=== PATIENT | female | born 1950 | race Caucasian/White ===

== ENCOUNTER → 2019-09-28 15:16 | Outpatient (CLI) | payer MEDICARE, OTHER, SELFPAY ==
--- NOTE | ~2019-09-28 | MR_ITS ---
EXAMINATION: MR knee RT wo con DATE: 09/28/2019 15:52 INDICATION: Medial meniscal tear presenting with generalized right knee pain and swelling. TECHNIQUE: Magnetic resonance imaging (MRI) of the right knee was performed without intravenous contr ast. Sequences included coronal PD-weighted FSE, coronal PD-weighted FS FSE, sagittal T2-weighted FS E, sagittal PD-weighted FS FSE and axial PD weighted fat saturated FSE. COMPARISON: None. FINDINGS: Medial compartment: Complex tear of the medial meniscus with fluid signal intensity tear planes including a longitudinal horizontal tear plane extending from the anterior body of the posterior horn and with secondary more irregular tearing at the meniscal body. Full/near full-thickness cartilage loss with underlying subar ticular edema along the medial third of the medial tibial plateau. Additional partial thickness chond ral ulceration with deep fissuring throughout the weightbearing medial femoral condyle with cortical irregularity and mild subarticular edema and cystic change posteriorly with a few tiny foci of subart icular edema more anteriorly. Lateral compartment: There is a longitudinal horizontal tear plane extending to the superior articular surface of the late ral meniscal body and posterior horn. Mild chondral fissuring along the posterior medial aspect of th e lateral tibial plateau. Scattered mild chondral surface regularity along the central weightbearing lateral femoral condyle. Patellofemoral compartment: Deep chondral ulceration with mild irregularity to the underlying cortex and minimal subarticular kendra ma at the patellar apical ridge and medial patellar facet. Shallow chondral fissuring along the later al patellar facet. Partial-thickness chondral ulceration with additional small central subchondral os teophytes at the inferior aspect of the medial trochlea. Ligaments and tendons: Anterior and posterior cruciate ligaments are normal. Minimal thickening and increased signal of the proximal medial collateral ligament without surrounding edema to suggest acute injury likely represen ting scarring related to chronic sprain. The fibular collateral ligament is normal. The extensor mech anism is normal. The visualized medial and lateral hamstring tendons as well as the iliotibial band a re normal. Fluid: Small right knee joint effusion with mild synovitis at the suprapatellar pouch. No loose osteochondra l bodies identified. Small Rivas's cyst. Osseous/other: Normal bone marrow signal aside from the previous noted likely degenerative mild subarticular edema. No fracture or pathologic marrow replacing process. IMPRESSION: 1. Medial and lateral meniscal tears. 2. Tricompartmental osteoarthritis, moderate severity with extensive high-grade chondral malacia in t he medial compartment and mild with high-grade chondral malacia in the patellofemoral compartment and with moderate grade chondromalacia in the lateral compartment. 3. Likely reactive small right knee joint effusion and small Rivas's cyst. Reviewed, dictated and finalized at location A. IMPRESSION: 1. Medial and lateral meniscal tears. 2. Tricompartmental osteoarthritis, moderate severity with extensive high-grade chondral malacia in the medial compartment and mild with high-grade chondral m alacia in the patellofemoral compartment and with moderate grade chondromalacia in the lateral compartment. 3. Likely reactive small right knee joint effusion and small Rivas's cyst.
== END ==
PROVIDERS: Visit Provider Orthopaedic Surgery
DX: S83.249A Other tear of medial meniscus, current injury, unspecified knee, initial encounter (principal); S83.281A Other tear of lateral meniscus, current injury, right knee, initial encounter; M17.11 Unilateral primary osteoarthritis, right knee; M94.261 Chondromalacia, right knee; M25.461 Effusion, right knee; M71.21 Synovial cyst of popliteal space [Baker], right knee
CPT/HCPCS: 73721

== ENCOUNTER 2019-12-20 00:12 | Outpatient (CLI) | payer MEDICARE, SELFPAY ==
[2019-12-20 18:28] LABS: SARS-CoV-2 RNA PCR Negative
== END 2019-12-20 00:13 | disposition home or self-care (01) ==
LOC: ANHCOVIDDT 00:12
PROVIDERS: PCP Internal Medicine; Visit Provider Orthopaedic Surgery
DX: Z01.812 Encounter for preprocedural laboratory examination (principal); Z20.828 Contact with and (suspected) exposure to other viral communicable diseases
CPT/HCPCS: 87635; C9803; U0003

== ENCOUNTER 2019-12-20 08:18 | Outpatient (CLI) | payer MEDICARE, OTHER, SELFPAY ==
--- NOTE | 2019-12-20 08:22 | ECG_ITS ---
Measurements Intervals [place] Rate: 45 P: 43 [place]: 192 QRS: 34 QRSD: 98 T: 43 QT: 475 QTc: 412 Interpretive Statements SINUS BRADYCARDIA INCOMPLETE RIGHT BUNDLE BRANCH BLOCK ABNORMAL ECG Electronically Signed On 12-20-2019 8:55:27 CDT by Сергей Bruce D.O.
== END 2019-12-20 08:19 | disposition home or self-care (01) ==
LOC: ANHSURGERY 08:22
PROVIDERS: PCP Internal Medicine; Visit Provider Orthopaedic Surgery
DX: I45.10 Unspecified right bundle-branch block (principal)
CPT/HCPCS: 87635; 93005; C9803; U0003

== ENCOUNTER 2020-01-17 00:08 | Outpatient (CLI) | payer MEDICARE, OTHER, SELFPAY ==
[2020-01-17 18:38] LABS: SARS-CoV-2 RNA PCR Negative
== END 2020-01-17 00:09 | disposition home or self-care (01) ==
LOC: ANHCOVIDDT 00:09
PROVIDERS: PCP Internal Medicine; Visit Provider Orthopaedic Surgery
DX: Z01.812 Encounter for preprocedural laboratory examination (principal); Z20.828 Contact with and (suspected) exposure to other viral communicable diseases
CPT/HCPCS: 87635; C9803; U0003

== ENCOUNTER 2020-01-19 00:28 | Day surgery (SDC) | payer MEDICARE, OTHER, SELFPAY ==
[2019-12-15 09:40] VITALS: BMI 24.2
--- NOTE | 2020-01-10 15:00 | PC.NURSE ---
STATES NO CHANGE IN HEALTH HX SINCE LAST INTERVIEW ON 12/15/19
--- NOTE | 2020-01-11 12:39 | PM.IMHP ---
H&P: HPI History of Present Illness Chief complaint: Right Medial and Lateral Meniscus Tear Narrative: Knee Pain Right knee pain. Pt had MRI done 09/28/19. Involved knee: right Onset: gradual Location of pain: medial, lateral, anterior and inferior Character: stabbing and throbbing Timing of pain: intermittent Exacerbated by: weight bearing, stairs, rotational activities and prolonged activity Relieved by: elevation, ice and rest Associated symptoms: Reports swelling and stiffness History of occupational/recreational activity with repetitive motion: No History of prior knee injury: No Review of Systems Review of Systems: All systems reviewed & are unremarkable except as noted in HPI and below Constitutional: Constitutional: Denies headache(s) and Denies weakness Eyes: Eyes: Denies blurry vision, Denies change in vision and Denies loss of vision ENT: Denies dizziness, Denies dry mouth, Denies headache(s) and Denies nasal congestion Cardiovascular: Cardiovascular: Denies chest pain, Denies syncope, Denies leg edema and Denies dyspnea on exertion Respiratory: Respiratory: Denies cough and Denies dyspnea on exertion Gastrointestinal: Gastrointestinal: Denies abdominal pain, Denies constipation and Denies diarrhea Genitourinary: Genitourinary: Denies urinary frequency Musculoskeletal: Musculoskeletal: Reports as per HPI and Denies numbness Integumentary/Breasts: Skin/Breast: Reports system reviewed and no additional complaints, except as docu Neurologic: Denies dizziness, Denies syncope, Denies headache(s), Denies loss of vision, Denies numbness and Denies weakness Psychiatric: Psychiatric: Reports no additional psychiatric complaints Endocrine: Endocrine: Reports no additional endocrine complaints Hematologic/Lymphatic: Hematologic/Lymphatic: Reports no additional hematologic/lymphatic complaints [facility] Past Medical History Medical History (Updated 11/27/19 @ 13:08 by Sugey Rueda) Medial meniscus tear Right knee DJD Social History Social History (Updated 11/27/19 @ 13:08 by Sugey Rueda) Smoking packs per day: 0.5 Smoking cigarettes per day: 10.0 Years smoked: 10 Smoking pack-years: 5.00 Smoking status: Former smoker Tobacco type: cigarettes Smoking end date: 04/05/77 Alcohol intake: current Drinks per week: 1 Spiritual care concerns: No Meds Home Medications and Allergies Home Medications Medication Instructions Recorded Confirmed Type acetaminophen 325 mg capsule 325 mg PO PRN PRN cap 09/22/19 01/10/20 History ibuprofen 200 mg capsule 200 mg PO .prn PRN cap 09/22/19 01/10/20 History chlorhexidine gluconate 4 % 1 applic TOPICAL ONCE #237 ml 11/27/19 01/10/20 Rx topical liquid Allergies Allergy/AdvReac Type Severity Reaction Status Date / Time Sulfa (Sulfonamide Allergy Unknown Rash Verified 01/10/20 14:52 Antibiotics) Exam Narrative: Exam Narrative: Exam Const Constitutional General: cooperative Nutritional Appearance: average body habitus Orientation/consciousness: patient oriented x3 Constitutional Limitations: no limitations HENWA Head: normal to inspection Ears: hearing grossly normal bilaterally General nose exam: Normal external nose present Face and sinus: normal facial exam Mouth: moist mucous membranes Teeth and gingiva: dentition normal Eyes General: appearance normal, both eyes and all related structures Pupils: Yes Equal, round and reactive pupils present EOM: EOMs intact bilaterally Neck Neck: Yes normal visual inspection Chest Chest palpation & inspection: normal inspection of the chest Resp Effort & Inspection: normal respiratory effort and able to speak in complete sentences Cardio Jugular venous distension: no JVD Neuro Cranial nerves: Yes Equal, round and reactive pupils present Extrem General: Yes normal gait (antalgic ) and No calf tenderness Right lower extremity: knee Details: tenderness Location: medial joint line
[2020-01-19] VITALS (8 sets, daily range): BP systolic 115–163; BP diastolic 64–88; PULSE 40–59; RESP 9–16; TEMP 35.8–36.1; O2SAT 100; BMI 24.8
[2020-01-19] MEDS: ACETAMINOPHEN 500 MG TABLET 1000 MG PO (07:05)
[2020-01-19] MEDS: CELECOXIB 200 MG CAPSULE PO (07:05)
--- NOTE | 2020-01-19 07:16 | WPDHPUPDATE1 ---
History and Physical Update Update Date/Time: 01/19/20 07:16 History and Physical has been reviewed, including an updated exam of the patient. There are NO changes in the patient's condition. Risks, benefits, and alternatives have been discussed and questions answered. Patient agrees to proceed with procedure.
[2020-01-19] MEDS: LACTATED RINGERS 1,000 ML 30 ML IV CONT ×2 (07:27→10:04)
--- NOTE | 2020-01-19 07:36 | SUR.PREOP ---
0725; DR CARRASCO AT BEDSIDE. SHOWED HIM RT OUTER LOWER LEG SCAB SITE.
--- NOTE | 2020-01-19 07:46 | WPDANESEPPF ---
Anes - Initial Pre Proc Eval Procedure: Operation Date: 01/19/20 08:45 Proposed Procedures p Right Knee Arthroscopy, Proceed As Indicated - Momo Mckeon MD Date/Time: 01/19/20 07:46 Surgeon: Momo Mckeon MD Pre Op Diagnosis: Right Medial and Lateral Meniscus Tear Patient Data Age: 69 Gender: F Height: 5 ft 6 in Weight: 69.8 kg Last Vital Signs Temp 36.1 C L 01/19/20 07:15 Pulse 59 L 01/19/20 07:15 Resp 16 01/19/20 07:15 BP 141/64 H 01/19/20 07:15 Pulse Ox 100 01/19/20 07:15 Allergies Allergy/AdvReac Type Severity Reaction Status Date / Time Sulfa (Sulfonamide Allergy Unknown Rash Verified 01/19/20 06:58 Antibiotics) Home Medications Medication Instructions Recorded Confirmed Type acetaminophen 325 mg capsule 325 mg PO PRN PRN cap 09/22/19 01/19/20 History ibuprofen 200 mg capsule 200 mg PO .prn PRN cap 09/22/19 01/19/20 History chlorhexidine gluconate 4 % 1 applic TOPICAL ONCE #237 ml 11/27/19 01/19/20 Rx topical liquid Patient hx anesthesia problems: none Family hx anesthesia problems: none PMFSH Past Medical History Medical History Medial meniscus tear Right knee DJD Surgical History Surgical History (Updated 01/19/20 @ 07:49 by Matheus Cuevas MD) H/O arthroscopic knee surgery Social History Social History Smoking packs per day: 0.5 Smoking cigarettes per day: 10.0 Years smoked: 10 Smoking pack-years: 5.00 Smoking status: Former smoker Tobacco type: cigarettes Smoking end date: 04/05/77 Alcohol intake: current Drinks per week: 1 Alcohol use details: BEER Living arrangements: alone Spiritual care concerns: No Anes - Eval Final PreProcedure Day of Procedure 01/19/20 07:46 Patient weight: normal Heart: regular rate and rhythm Lungs: clear to auscultation Airway: Mallampati scale class II Neurological: alert and oriented Last oral intake: >/= 8 hours ASA classification: II Emergent: no Anesthetic plan: proceed Anesthesia type and monitoring: general LMA and standard monitoring Informed Consent: The patient's anesthetic plan and its attendant risks and benefits were discussed with the patient/family/POA. Questions were solicited and answers provided to the satisfaction of the patient/family/POA.
[2020-01-19] MEDS: ceFAZolin 2 GM/D5W 50 ML 2 GM/50 ML BAG IVPB (08:51)
--- NOTE | 2020-01-19 10:06 | PM.PROC ---
Procedure Note - Detailed Date of procedure: 01/19/20 Pre-op diagnosis: Right Medial and Lateral Meniscus Tear Post-op diagnosis: other (medial meniscus tear, lateral meniscus tear, chondromalacia, synovitis) Procedure performed: RIGHT KNEE SCOPE WITH PARTIAL MEDIAL MENISCECTOMY, PARTIAL LATERAL MENISCECTOMY AND MAJOR SYNOVECTOMY Description of procedure: PATIENT WAS TAKEN TO THE OR. THE RIGHT LEG WAS PREPPED AND DRAPED STERILE. TROCARS WERE PLACED IN THE USUAL FASHION. CAMERA WAS INTRODUCED. THERE WAS CHONDROMALACIA TO THE PATELLA FEMORAL JOINT. THERE WAS A LOT OF SYNOVITIS IN ALL COMPARTMENTS. THE MEDIAL COMPARTMENT SHOWED GRADE 2 CHONDROMALACIA AND AN AREA OF FULL THICKNESS CARTILAGE DEFECT ON BOTH THE MEDIAL FEMORAL CONDYLE AND THE MEDIAL PLATEAU. A SHAVER WAS USED TO PREFORM A CHONDROPLASTY. THERE WAS A COMPLEX MEDIAL MENISCUS TEAR. THE TEAR WAS RESECTED WITH A BITER AND A SHAVER DOWN TO A SMOOTH BASE. ABOUT 20% OF THE MENISCUS WAS REMOVED. THE ACL WAS INTACT. THE LATERAL MENISCUS WAS TORN AT THE ANTERIOR HORN. THE TEAR WAS RESECTED. THE LAT COMPARTMENT HAD GRADE 2 CHONDROMALACIA AT THE LATERAL FEMORAL CONDYLE. CHONDROPLASTY WAS PREFORMED. A SYNOVECTOMY WAS PREFORMED WELL. THE PATELLO FEMORAL JOINT UNDERWENT CHONDROPLASTY. THERE WAS GRADE 3 CHONDROMALACIA IN MOST OF THE TROCHLEA AND PART OF THE PATELLA. SYNOVECTOMY WAS PREFORMED IN THE SUPERIOR MEDIAL COMPARTMENT. THE WOUNDS WERE APPROXIMATED WITH 4.0 NYLON. STERILE DRESSING WAS APPLIED. PATIENT WAS EXTUBATED. Anesthesia: GLMA Surgeon: Momo Mckeon MD Estimated blood loss (mL): 5 Complications: No immediate complications Condition: stable Disposition: PACU
[2020-01-19] MEDS: fentaNYL CITRATE INJ (*CRX) 100 MCG/2 ML VIAL 25 MCG IV PUSH ×2 (10:30→10:57)
[2020-01-19] MEDS: oxyCODONE HCL (*CRX) 5 MG TAB IR PO (12:02)
== END 2020-01-19 12:32 | disposition home or self-care (01) ==
PROVIDERS: PCP Internal Medicine; Visit Provider Orthopaedic Surgery
PROC: (CPT 29870; principal; 2020-01-19 08:45)
DX: M23.331 Other meniscus derangements, other medial meniscus, right knee (principal); M23.341 Other meniscus derangements, anterior horn of lateral meniscus, right knee; M65.861 Other synovitis and tenosynovitis, right lower leg; M94.261 Chondromalacia, right knee; M17.11 Unilateral primary osteoarthritis, right knee; Z87.891 Personal history of nicotine dependence
CPT/HCPCS: 29880; A9270; J0690; J1100; J2405; J2704; J3010; J7120

== ENCOUNTER → 2021-10-31 12:04 | Outpatient (CLI) | payer MEDICARE, OTHER, SELFPAY ==
--- NOTE | ~2021-10-31 | MR_ITS ---
EXAMINATION: MR foot RT wo con DATE: 10/31/2021 12:54 INDICATION: Right foot pain TECHNIQUE: Magnetic resonance imaging (MRI) of the right fore/mid foot was performed without intraven ous contrast. Sequences included sagittal T1-weighted FSE, sagittal fluid sensitive FSE STIR, coronal PD-weighted FS FSE, coronal T1-weighted FSE, axial PD-weighted FS FSE, and axial PD-weighted FSE. COMPARISON: Right foot radiographs dated 10/28/2021 FINDINGS: Bone alignment is normal. There is marrow edema at the head of the second metatarsal with subtle subc ortical low signal intensity along the distal articular surface consistent with osteonecrosis (Freibe rg's infraction), still without collapse/flattening of the distal articular cortex. Old healed avulsi on fracture at the medial base of the first proximal phalanx. No other fractures identified. Mild dali yarticular osteoarthritis at the first metatarsophalangeal, a few of the joints in the midfoot and a few interphalangeal joints. There is associated mild subarticular cystlike change at the head of the first metatarsal, at the distal articular surface of the navicula and proximal articular surface of t he middle cuneiform. Subarticular edema-like signal change at the base of the fifth proximal phalanx. The Lisfranc ligament complex as well as the collateral ligament complex at the metatarsophalangeal and interphalangeal joints are normal. Visualized portions of the intrinsic musculature as well as th e flexor and extensor tendons of the foot are unremarkable. IMPRESSION: 1. 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 2. Mild polyarticular osteoarthritis in the mid and forefoot. Reviewed, dictated and finalized at location A. IMPRESSION: 1. 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 2. Mild polyarticular osteoarthritis in the mid and forefoot.
== END ==
PROVIDERS: PCP Internal Medicine; Visit Provider Orthopaedic Surgery
DX: M87.874 Other osteonecrosis, right foot (principal); M19.071 Primary osteoarthritis, right ankle and foot
CPT/HCPCS: 73718

== ENCOUNTER 2022-01-23 09:56 | Outpatient (CLI) | payer MEDICARE, OTHER, SELFPAY ==
--- NOTE | 2022-01-23 10:55 | ECG_ITS ---
Measurements Intervals [place] Rate: 43 P: 44 [place]: 186 QRS: 30 QRSD: 98 T: 34 QT: 473 QTc: 404 Interpretive Statements SINUS BRADYCARDIA INCOMPLETE RIGHT BUNDLE BRANCH BLOCK [90+ ms QRS DURATION, TERMINAL R IN V1/V2, 40+ ms S IN I/aVL/V4/V5/V6] COMPARED TO ECG 12/20/2019 08:51:15 NO SIGNIFICANT CHANGES Electronically Signed On 01-23-2022 14:08:35 CDT by Mihai Bucio M.D.
[2022-01-23 11:26] LABS: Basophils Percent Auto 0.5 % (0.2-1.2); Eosinophils Absolute Auto 0.1 K/mm3 (0-0.3); Eosinophils Percent Auto 0.7 % (0-4.4); Hematocrit 42.1 % (37.0-47.0); Hemoglobin 13.9 g/dL (12.0-15.0); Immature Granulocyte Absolute 0.01 K/mm3 (0.00-0.031); Immature Granulocyte Percent A 0.1 % (0-0.5); Lymphocytes Absolute Auto 2.05 K/mm3 (0.9-3.2); Lymphocytes Percent Auto 27.3 % (18.3-44.2); Mean Corpuscular Hemoglobin 29.4 pg (26-34); Mean Platelet Volume 10.7 fl (7.4-10.4); Monocytes Absolute Auto 0.4 K/mm3 (0.1-0.6); Monocytes Percent Auto 5.2 % (2.6-8.5); Neutrophils Percent Auto 66.2 % (45.5-73.1); Platelet Count Result 232 k/mm3 (150-375); Red Blood Count 4.73 M/mm3 (4.2-5.4); Red Cell Distribution Width 12.7 % (11.5-14.5); White Blood Count 7.5 K/mm3 (4.5-10.0)
[2022-01-23 11:30] LABS: INR 1.1; Prothrombin Time 13.5 Seconds (11.1-14.7)
[2022-01-23 11:31] LABS: Albumin Level 4.6 g/dL (3.5-5.1); Anion Gap 10 mmol/L (8-16); Blood Urea Nitrogen 16 mg/dL (7-17); Calcium 9.7 mg/dL (8.4-10.2); Carbon Dioxide 26 mmol/L (22-30); Chloride 104 mmol/L (98-107); Estimated Glomerular Filt Rate 55; Glucose 92 mg/dL (65-110); Partial Thromboplastin Time 30.2 SECONDS (22.3-36.8); Potassium 4.5 mmol/L (3.4-5.0); Sodium 140 mmol/L (137-145)
[2022-01-23 11:33] LABS: Add Urine Microscopic? YES; Appearance Urine Clear (Clear); Bilirubin Urine Negative (Negative); Blood Urine Negative (Negative); Color Urine Straw (Yellow); Glucose Urine UA Negative (Negative); Ketones Urine Negative (Negative); Leukocyte Esterase Ur Negative LEU/UL (Negative); Mucus Urine Rare /lpf; Nitrate Urine Negative (Negative); Protein Urine Negative (Negative); Squamous Epithelial Cell Urine Rare /hpf (Few); Transitional Epi Cells Urine Rare /hpf (None Seen); Urine Cotinine NEGATIVE; Urobilinogen Urine Negative mg/dL (<2.0)
[2022-01-23 12:36] LABS: Specific Grav Ur 1.004 (1.001-1.035)
== END 2022-01-23 09:57 | disposition home or self-care (01) ==
PROVIDERS: PCP Family Medicine; Visit Provider Orthopaedic Surgery
DX: M17.11 Unilateral primary osteoarthritis, right knee (principal); Z01.818 Encounter for other preprocedural examination; I45.10 Unspecified right bundle-branch block
CPT/HCPCS: 80048; 80307; 81001; 82040; 83036; 85025; 85610; 85730; 87081; 93005

== ENCOUNTER 2022-02-11 16:43 | Observation (INO) | payer MEDICARE, OTHER, SELFPAY ==
[2022-01-23 10:08] VITALS: BMI 25.1
--- NOTE | 2022-01-23 10:28 | PC.NURSE ---
Report to the Outpatient Waiting Room, entrance under the green pavilion located off [facility], at time _1000 on date _02/10/22 . Planned Procedure Time: __1200 . Time changes happen often and if your time is changed the preop area will call you the afternoon before. - You and your visitor will be asked to self-screen and do not enter if you have any COVID symptoms. - We encourage only one visitor and NO visitors under age 16 are allowed at this time. Your visitor will receive communication by the phone number that is given day of service. - The patient visitor is requested to social distance or may leave the building when not with patient due to restrictions. - A mask is required within the hospital. Patients may have clear liquids (water, carbonated beverages, clear teas, apple juice) until 3 hours prior to surgery with a maximum of 20 ounces. - No food from midnight until time of surgery - Infants may have breast milk until 4 hours before surgery, formula 6 hours prior to surgery. - Children will be allowed to drink immediately following surgery. If applicable, please bring a bottle or sippy cup to assist with drinking. Juice, water, soda, and popsicles are readily available. For infants on formula, please bring formula the day of surgery. Pacifiers are allowed. Take the following medications with a SIP of water the morning of surgery: __NONE Medications to discontinue per physician ____IBUPROFEN PER DR CARRASCO Date to take last dose Please no make-up, nail croatian, hairspray, perfume, deodorant, or body powder the day of surgery. No jewelry (including any body piercings) or valuables the day of surgery, leave them at home. Please take a shower or bath the night before, or the morning of, surgery with an antibacterial soap. Wear comfortable, loose fitting clothing. Children are encouraged to wear pajamas. - Jewelry must be removed prior to entering the operating room. Rings and piercings that are not removed may be cut off. - The hospital will not accept responsibility for valuables. - Please leave all valuables, including medications, at home the day of surgery. If you are going home after surgery, a licensed escort car driver must drive you home. - NO public transportation without another adult. - We recommend that an adult stay with you for 24 hours following discharge. - We also recommend that you do not drive, make important decision, drink alcoholic beverages, or take any drugs that were not prescribed by your health care provider for at least 24 hours after your discharge time. For Pediatric surgeries, we recommend two adults accompany the child home. Follow any additional instructions given to you from your surgeon. If you or anyone in your household have experienced Covid symptoms in the past week, please notify your surgeon or the nurse liaison at the phone number below for possible testing. VERBAL AND WRITTEN instructions given to ___PATIENT and asked if any additional questions and then verbalized understanding. Patient advised to call surgeon office or pre surgery nurse liaison [phone] if any additional questions.
[2022-01-23 10:46] VITALS: BP 166/88; PULSE 52; RESP 18; TEMP 36.5; O2SAT 100
[2022-02-10] VITALS (18 sets, daily range): BP systolic 97–157; BP diastolic 53–89; PULSE 46–99; RESP 10–18; TEMP 36–36.6; O2SAT 95–100
[2022-02-10] MEDS: LACTATED RINGERS 1,000 ML 30 ML IV CONT ×2 (10:10→15:07)
[2022-02-10] MEDS: ACETAMINOPHEN 500 MG TABLET 1000 MG PO (10:11)
--- NOTE | 2022-02-10 10:36 | SUR.PREOP ---
PT AND FAMILY MADE AWARE OF 1 HOUR DELAY FROM SURGEON BEFORE.
--- NOTE | 2022-02-10 11:03 | WPDHPUPDATE1 ---
History and Physical Update Update Date/Time: 02/10/22 11:03 History and Physical has been reviewed, including an updated exam of the patient. There are NO changes in the patient's condition. Risks, benefits, and alternatives have been discussed and questions answered. Patient agrees to proceed with procedure.
--- NOTE | 2022-02-10 11:26 | P.PNAN_ITS ---
Anes - Initial Pre Proc Eval Procedure: Operation Date: 02/10/22 12:00 Proposed Procedures p Right Total Knee Arthroplasty - Momo Mckeon MD Date/Time: 02/10/22 11:26 Surgeon: Momo Mckeon MD Pre Op Diagnosis: right knee djd Patient Data Age: 71 Gender: F Height: 1.68 m Weight: 69.7 kg Last Vital Signs Temp 36.5 C 02/10/22 10:23 Pulse 49 L 02/10/22 10:23 Resp 16 02/10/22 10:23 BP 147/71 H 02/10/22 10:23 Pulse Ox 99 02/10/22 10:23 O2 Del Method Room Air 02/10/22 10:23 Allergies Allergy/AdvReac Type Severity Reaction Status Date / Time Sulfa (Sulfonamide Allergy Unknown Rash Verified 02/10/22 09:52 Antibiotics) Home Medications Medication Instructions Recorded Confirmed Type ibuprofen 200 mg capsule 200 mg PO .prn PRN Pain 09/22/19 02/10/22 History Patient hx anesthesia problems: none Family hx anesthesia problems: none Results Review: All pre-operative results and documents have been reviewed as part of the pre- operative evaluation. [facility] Past Medical History Medical History Arthritis Family history of heart murmur History of mitral valve prolapse Medial meniscus tear Right knee DJD Toe fracture, right Surgical History Surgical History H/O arthroscopic knee surgery History of bladder suspension procedure Hx of hysterectomy Family History Family History Father Lung cancer Mother Diabetes mellitus Hypertension Acute myocardial infarction Grandparent Diabetes mellitus Social History Social History Smoking packs per day: 0.5 Smoking cigarettes per day: 10.0 Years smoked: 10 Smoking pack-years: 5.00 Smoking status: Former smoker Tobacco type: cigarettes Smoking end date: 04/05/77 Additional smoking assessment comments: DENIES ANY FORM OF TOBACCO USE Alcohol intake: current Drinks per week: 1 Alcohol use details: BEER Substance use: never Living arrangements: alone 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 Informed Consent: The patient's anesthetic plan and its attendant risks and benefits were discussed with the patient/family/POA. Questions were solicited and answers provided to the satisfaction of the patient/family/POA.
--- NOTE | 2022-02-10 12:25 | WPDANESPNB ---
Anes - Peripheral Nerve Block Date/Time: 02/10/22 12:25 I have discussed with the patient/family/POA the placement of a peripheral nerve block for post-operative pain management, including associated risks, benefits, complications, and side effects. Alternative methods of post-operative analgesia were detailed. Questions were solicited and answers provided to the satisfaction of the patient/family/POA. Time-Out: A pre-procedural Time-Out was completed immediately before starting the procedure and confirmed: Patient Identification, Site, Procedure, Patient Position and the Availability of Requisite Equipment. Clinical Indications: Acute post-operative pain management requested by the operative surgeon. Nerve Block Insertion Note Anes-nerve block: femoral right Patient position: supine Skin prep: chlorhexidine Needle: 22 gauge, stimulating, insulated echogenic needle. Needle length: 50 mm Technique: nerve stimulation lost at (mA) (0.3) Injectate: bupivacaine 0.5% with epi 5 mcg/ml (20cc no epi) and dexamethasone (mg) (4) Observations: tolerated well Complications: none Procedure start time:: 1224 Procedure end time:: 1228
[2022-02-10] MEDS: TRANEXAMIC ACID 1,000MG/ISO100 1,000 MG/100 ML BAG 200 MG IVPB (12:30)
[2022-02-10] MEDS: ceFAZolin 2 GM/D5W 50 ML 2 GM/50 ML BAG IVPB ×2 (13:04→22:39)
[2022-02-10] MEDS: GENTAMICIN BONE CEMENT REFOBACIN 1 EACH TOPICAL (14:02)
[2022-02-10] MEDS: TRANEXAMIC ACID 1,000 MG/10 ML AMPUL 1000 MG IV PUSH (14:23)
--- NOTE | 2022-02-10 15:21 | W.PM.PROC2 ---
Procedure Note - Detailed Date of Procedure 02/10/22 Pre-op Diagnosis right knee djd Post-op Diagnosis Same Procedure Performed R TKA Surgeon Momo Mckeon MD Anesthesia General Description of Procedure THE RIGHT KNEE WAS PREPPED AND DRAPED IN THE STERILE FASHION. THERE WAS A 10 DEGREE FLEXION CONTRACTURE. A MIDLINE SKIN INCISION WAS MADE. A MEDIAL PARAPATELLAR ARTHROTOMY WAS MADE. THE PATELLA WAS EVERTED. THERE WAS TRICOMPARTMENT DJD. THERE WAS MINIMAL PATELLA DJD. AN INTRAMEDULLARY STEPHANIE WAS PLACED IN THE FEMUR. A DISTAL FEMORAL CUT WAS MADE IN 5 DEGREES OF VALGUS REMOVING APPROXIMATELY 9 MM OF BONE FROM THE DISTAL FEMUR. THE FEMUR WAS SIZED TO 62.5. A 62.5 FEMORAL CUTTING BLOCK WAS PLACED IN 3 DEGREES OF EXTERNAL ROTATION AND IN ALIGNMENT WITH HERBERT'S LINE AND THE TRANSEPICONDYLAR AXIS. ANTERIOR POSTERIOR AND CHAMFER CUTS WERE MADE. THE CUTS WERE EXCELLENT. NEXT AN INTRAMEDULLARY CUTTING GUIDE WAS PLACED IN THE TIBIA. A TRANS TIBIAL CUT WAS MADE ALONG THE LONG AXIS OF THE TIBIA. APPROXIMATELY 10 MM OF BONE WAS REMOVED FROM THE HIGH SIDE OF THE TIBIA. THE TIBIA WAS THEN PLANED TO A SMOOTH SURFACE. POSTERIOR FEMORAL OSTEOPHYTES WERE REMOVED FROM THE FEMORAL CONDYLES. A 71 TIBIAL TRIAL WAS PLACED IN ALIGNMENT WITH THE 1/3 MEDIAL ASPECT OF THE TIBIAL TUBERCLE. THEN A 62.5 FEMORAL TRIAL COMPONENT WAS PLACED. BOTH HAD EXCELLENT FITS. EVENTUALLY A 10 MM CR POLYETHYLENE TRIAL COMPONENT WAS PLACED. THE KNEE WAS TAKEN THROUGH A RANGE OF MOTION. THE KNEE CAME OUT TO FULL EXTENSION. THERE WAS NO ABNORMAL TILT TO THE PATELLA. THERE WAS GOOD A/P AND VARUS/VALGUS STABILITY. THERE WAS NO EXCESSIVE ROLL BACK WITH FLEXION. THE TRIAL COMPONENTS WERE REMOVED. THEN A 62.5 FEMORAL COMPONENT AND 71 TIBIAL COMPONENT WITH A 10 CR POLYETHYLENE COMPONENT WERE CEMENTED INTO PLACE. ONCE THE CEMENT WAS HARD THE KNEE WAS TAKEN THROUGH A ROM AGAIN AND FOUND TO BE STABLE WITH NO PATELLA TILT NO EXCESSIVE ROLL BACK WITH FLEXION AND GOOD STABILITY WITH COMPLETE AND FULL EXTENSION. THE KNEE WAS IRRIGATED WITH STERILE BETADINE AND WATER FOR ABOUT 3 MINUTES. THE BLEEDERS WERE CAUTERIZED. THE ARTHROTOMY WAS REPAIRED WITH NUMBER 1 VICRYL. THE SUB CUTANEOUS LAYER WITH 2-0 VICRYL AND THE SKIN WITH KRISTY. THE WOUND WAS WASHED AND A STERILE DRESSING WAS APPLIED. PATIENT WAS EXTUBATED. Estimated Blood Loss -150.0 Pathology None sent Complications No immediate complications Condition Stable Disposition PACU
[2022-02-10] MEDS: fentaNYL CITRATE INJ (*CRX) 100 MCG/2 ML VIAL 25 MCG IV PUSH ×8 (15:30→17:10)
--- NOTE | 2022-02-10 19:55 | ADMGEN ---
This patient, Delfina Cowart, was admitted to Medical Room 253-01. Patient/family oriented to hospital policies and general routines including ID bracelet, bed and alarms, visiting hours, pain management, procedures, bathroom and other care routines, personal items, smoking policy, room service/diet, and visiting hours. Information on how to activate the Rapid Response Team has been discussed. Patient/Family are encouraged to report perceived risks to care and to ask questions if they do not understand what they are told or what they should do.
[2022-02-10] MEDS: FAMOTIDINE 20 MG TABLET PO (22:27)
[2022-02-10] MEDS: SENNA/DOCUSATE SODIUM TABLET 2 TAB PO (22:27)
[2022-02-10] MEDS: KETOROLAC 15 MG/ML VIAL (*BKC) IV PUSH (22:28)
[2022-02-10] MEDS: ASPIRIN 325 MG ENTERIC TABLET PO (22:28)
[2022-02-11] VITALS (7 sets, daily range): BP systolic 110–143; BP diastolic 50–65; PULSE 45–68; RESP 16–18; TEMP 36.2–36.8; O2SAT 97–100
--- NOTE | ~2022-02-11 | XR_ITS ---
EXAM: XR knee RT 2V DATE: 02/10/2022 15:22 HISTORY: RT TOTAL KNEE . COMPARISON: 02/05/2022. FINDINGS: Interval right knee total arthroplasty placement, in good position. Midline skin lalito. Gas and fluid within the joint space and soft tissues. No unexpected radiopaque foreign body. IMPRESSION: Expected postsurgical changes, with no radiographic evidence of procedure or hardware rel ated complication. Reviewed, dictated and finalized at location K. 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
[2022-02-11] MEDS: KETOROLAC 15 MG/ML VIAL (*BKC) IV PUSH ×4 (03:52→21:06)
[2022-02-11] MEDS: ceFAZolin 2 GM/D5W 50 ML 2 GM/50 ML BAG IVPB ×2 (04:59→13:09)
[2022-02-11 06:02] LABS: Anion Gap 13 mmol/L (8-16); Blood Urea Nitrogen 14 mg/dL (7-17); Calcium 8.4 mg/dL (8.4-10.2); Carbon Dioxide 21 mmol/L (22-30); Chloride 105 mmol/L (98-107); Estimated CRCL calculation 52 ml/min; Estimated Glomerular Filt Rate > 60; Glucose 146 mg/dL (65-110); Hemoglobin 11.6 g/dL (12.0-15.0); Immature Granulocyte Absolute 0.03 K/mm3 (0.00-0.031); Immature Granulocyte Percent A 0.4 % (0-0.5); Lymphocytes Absolute Auto 1.14 K/mm3 (0.9-3.2); Lymphocytes Percent Auto 14.7 % (18.3-44.2); Mean Corpuscular HGB Conc 32.2 g/dl (32-36); Mean Corpuscular Hemoglobin 29.1 pg (26-34); Mean Corpuscular Volume 90.2 fl (80-100); Mean Platelet Volume 11.5 fl (7.4-10.4); Monocytes Absolute Auto 0.5 K/mm3 (0.1-0.6); Monocytes Percent Auto 5.8 % (2.6-8.5); Neutrophils Absolute Auto 6.1 K/mm3 (1.3-6.7); Neutrophils Percent Auto 79.1 % (45.5-73.1); Platelet Count Result 182 k/mm3 (150-375); Potassium 4.2 mmol/L (3.4-5.0); Red Blood Count 3.99 M/mm3 (4.2-5.4); Red Cell Distribution Width 12.6 % (11.5-14.5); Sodium 139 mmol/L (137-145); White Blood Count 7.8 K/mm3 (4.5-10.0)
[2022-02-11] MEDS: FAMOTIDINE 20 MG TABLET PO ×2 (08:44→21:06)
[2022-02-11] MEDS: ASPIRIN 325 MG ENTERIC TABLET PO ×2 (08:44→21:06)
[2022-02-11] MEDS: oxyCODONE/ACETAMINOPHEN (*CRX) 5-325 MG TABLET 1 TABLET PO (08:57)
--- NOTE | 2022-02-11 12:53 | P.PNAN_ITS ---
Anes - Prog Note Post-Op Date/Time: 02/11/22 12:53 Cardiovascular status: normal Respiratory status: normal Airway patency: baseline Mental status: baseline Post-Op hydration status: normal Vital Signs: Last Vital Signs Temp 36.7 C 02/11/22 11:15 Pulse 51 L 02/11/22 11:15 Resp 16 02/11/22 11:15 BP 113/53 L 02/11/22 11:15 Pulse Ox 97 02/11/22 11:15 O2 Del Method Room Air 02/11/22 08:56 O2 Flow Rate 2 02/10/22 18:29 Pain Score (VAS): 2 I/O: Intake & Output 02/10/22 02/11/22 02/11/22 23:59 07:59 15:59 Intake Total 750 290 240 Output Total 200 500 Balance 550 -210 240 Laboratory Tests 02/11/22 05:20 02/11/22 05:20 02/11/22 02/11/22 05:20 05:20 WBC 7.8 RBC 3.99 L Hgb 11.6 L Hct 36.0 L MCV 90.2 MCH 29.1 MCHC 32.2 RDW 12.6 Plt Count 182 MPV 11.5 H Immature Gran % (Auto) 0.4 Neut % (Auto) 79.1 H Lymph % (Auto) 14.7 L Harris % (Auto) 5.8 Eos % (Auto) 0.0 Baso % (Auto) 0.0 L Lymph # (Auto) 1.14 Harris # (Auto) 0.5 Eos # (Auto) 0.0 Baso # (Auto) 0.0 Abs Immat Gran (auto) 0.03 Absolute Neuts (auto) 6.1 Absolute Nucleated RBC 0.0 Nucleated RBC % 0.0 Sodium 139 Potassium 4.2 Chloride 105 Carbon Dioxide 21 L Anion Gap 13 BUN 14 Creatinine 0.80 Estim Creat Clear Calc 52 Estimated GFR > 60 Glucose 146 H Calcium 8.4 Post-procedural complaints: none Patient Feedback: Patient satisfied with anesthetic care.
--- NOTE | 2022-02-11 16:18 | PM.PNORT ---
Progress Note: A&P Assessment and Plan (1) Right knee DJD: Code(s): M17.11 - Unilateral primary osteoarthritis, right knee Status: Acute Assessment and Plan: POD 1 DOING WELL BUT STILL REQUIRING PT FOR AMBULATION. HER BLOCK IS STILL PRESENT. SHE WILL CONTINUE HER PT AND POSSIBLE DC IN AM Subjective Subjective Date/Time Seen: 02/11/22 16:18 POD 1 DOING WELL. NO CALF PAIN. BLOCK IS STILL PRESENT. SHE IS STILL REQUIRING PT. Exam Extrem: Other: VSS AFEBRILE DRESSING DRY NV INTACT NEG HOMANS SIGN CALF SOFT NON TENDER. WEAK FEMORAL NERVE MOTOR DISTRIBUTION Objective Data Vital Signs Vital Signs: Vital Signs - 24 hr 02/10/22 16:25 02/10/22 16:40 02/10/22 16:58 Temperature Pulse Rate 52 L 65 53 L Respiratory Rate 12 14 12 Blood Pressure 126/65 137/69 149/69 H Pulse Oximetry 99 100 100 Oxygen Delivery Nasal Cannula Nasal Cannula Nasal Cannula Oxygen Flow Rate 2 2 2 02/10/22 17:15 02/10/22 17:29 02/10/22 18:02 Temperature Pulse Rate 50 L 58 L 46 L Respiratory Rate 12 12 12 Blood Pressure 150/66 H 134/75 140/66 Pulse Oximetry 100 100 100 Oxygen Delivery Nasal Cannula Nasal Cannula Nasal Cannula Oxygen Flow Rate 2 2 2 02/10/22 18:29 02/10/22 18:51 02/10/22 19:23 Temperature Pulse Rate 58 L 60 54 L Respiratory Rate 16 16 18 Blood Pressure 142/73 H 152/63 H 141/69 H Pulse Oximetry 100 100 100 Oxygen Delivery Nasal Cannula Room Air Room Air Oxygen Flow Rate 2 02/10/22 19:55 02/10/22 20:08 02/10/22 21:25 Temperature 36.0 C L 36.6 C 36.1 C L Pulse Rate 63 54 L 99 Respiratory Rate 18 18 18 Blood Pressure 143/89 H 131/62 112/53 L Pulse Oximetry 98 98 97 Oxygen Delivery Oxygen Flow Rate 02/10/22 20:00 02/11/22 03:05 02/11/22 08:06 Temperature 36.6 C Pulse Rate 56 L Respiratory Rate 18 Blood Pressure 110/50 L Pulse Oximetry 98 97 Oxygen Delivery Room Air Room Air Oxygen Flow Rate 02/11/22 08:56 02/11/22 08:00 02/11/22 11:15 Temperature 36.7 C Pulse Rate 51 L Respiratory Rate 16 Blood Pressure 113/53 L Pulse Oximetry 97 Oxygen Delivery Room Air Room Air Oxygen Flow Rate 02/11/22 13:25 Temperature 36.2 C L Pulse Rate 68 Respiratory Rate 16 Blood Pressure 131/58 L Pulse Oximetry 100 Oxygen Delivery Oxygen Flow Rate Intake/Output Intake/Output: Intake & Output 02/08/22 02/09/22 02/10/22 02/11/22 23:59 23:59 23:59 23:59 Intake Total 900 650 Output Total 200 500 Balance 700 150 Meds/Results Medications: Active Medications Generic Name Dose Route Start Last Admin Trade Name Freq PRN Reason Stop Dose Admin Acetaminophen 1,000 mg 02/10/22 19:40 Acetaminophen 500 Mg Tablet PO Q6H PRN Pain Rated 1-3 Aspirin 325 mg 02/10/22 21:00 02/11/22 08:44 Aspirin 325 Mg Enteric Tablet PO 325 mg Q12HR KAYLEE Administration Diazepam 5 mg 02/10/22 19:40 Diazepam (*Crx) 5 Mg Tablet PO Q8H PRN Spasms Diphenhydramine HCl 25 mg 02/10/22 19:40 Diphenhydramine Hcl Inj 50 Mg/Ml Vial IV PUSH Q6H PRN Itching Famotidine 20 mg 02/10/22 21:00 02/11/22 08:44 Famotidine 20 Mg Tablet PO 20 mg Q12HR KAYLEE Administration Ketorolac Tromethamine 15 mg 02/10/22 21:00 02/11/22 15:57 Ketorolac 15 Mg/Ml Vial (*Bkc) IV PUSH 02/11/22 21:01 15 mg Q6H KAYLEE Administration Naloxone HCl 0.1 mg 02/10/22 19:40 Naloxone Hcl 0.4 Mg/Ml Vial IV PUSH Q2M PRN Opiate Reversal Ondansetron HCl 4 mg 02/10/22 19:40 Ondansetron Inj 4 Mg/2 Ml Vial IV PUSH Q4H PRN Nausea And Vomiting Oxycodone/Acetaminophen 1 tablet 02/10/22 19:40 02/11/22 08:57 Oxycodone/Acetaminophen (*Crx) 5-325 Mg Tablet PO 1 tablet Q4H PRN Administration Pain Rated 4-6 Oxycodone/Acetaminophen 2 tablet 02/10/22 19:40 Oxycodone/Acetaminophen (*Crx) 5-325 Mg Tablet PO Q6H PRN Pain Rated 7-10 Polyethylene Glycol 17 gm 02/11/22 09:00
[2022-02-12 00:04] VITALS: BP 147/66; PULSE 50; RESP 20; TEMP 36.6; O2SAT 100
[2022-02-12 04:14] VITALS: BP 142/56; PULSE 48; RESP 20; TEMP 36.6; O2SAT 100
[2022-02-12] MEDS: ASPIRIN 325 MG ENTERIC TABLET PO (08:50)
[2022-02-12] MEDS: FAMOTIDINE 20 MG TABLET PO (08:51)
--- NOTE | 2022-02-12 09:28 | PM.PNORT ---
Progress Note: A&P Assessment and Plan (1) S/P total knee arthroplasty: Code(s): Z96.659 - Presence of unspecified artificial knee joint Status: Acute Assessment and Plan: POD #2 : Right TKA Continue PT/OT. WBAT. Walker. HIGH FALL RISK. Continue pain control. Ice Knee. Protect skin. DVT prophylaxis with Aspirin. SCDs. Incentive Spirometry Use reviewed. Monitor Dressing. Change prior to discharge. Bowel Regimen. Dispo: Home with Home Health pending progress with PT/OT Subjective Subjective Date/Time Seen: 02/12/22 09:28 Post Op day: 2 Principal diagnosis: Right Knee DJD Interval history: POD #2: Right TKA Patient doing well. Pain well controlled. Hopeful for discharge home. Review of Systems Review of Systems: All systems reviewed & are unremarkable except as noted in HPI and below Constitutional: Constitutional: Denies fever(s) and Denies headache(s) ENT: Denies headache(s) Cardiovascular: Cardiovascular: Denies chest pain, Denies diaphoresis, Denies palpitations and Denies dyspnea Respiratory: Respiratory: Denies dyspnea Gastrointestinal: Gastrointestinal: Denies abdominal pain, Denies constipation, Denies nausea and Denies vomiting Genitourinary: Genitourinary: Reports nocturia and Denies dysuria Musculoskeletal: Musculoskeletal: Reports arthralgias (Right Knee ) and Reports joint swelling (Right Knee ) Neurologic: Denies headache(s) Endocrine: Endocrine: Denies palpitations Exam Const: General: comfortable and no acute distress Resp: Effort & Inspection: normal respiratory effort Cardio: Rate: regular rate Rhythm: regular rhythm GI: GI Palp: Yes Soft to palpation, No Tenderness to palpation present (GI) and No Guarding due to palpation present (GI) Skin: General skin exam: wounds noted Wounds: wounds noted Other: Incision c/d/i. No surrounding redness/warmth. No hematoma. Mild ecchymosis. No wound dehiscence Neuro: Cognition (Neuro): normal cognition Other: NV intact aside from block. Moves toes. Sensation intact to light touch. +ankle dorsiflexion/plantarflexion. Extrem: Right lower extremity: normal to inspection, knee Details: tenderness (diffuse, mild ) Location: of the patella, swelling (diffuse, consistent with surgical intervention ), abnormal ROM Details: pain with active ROM during, pain with passive ROM during and with range as follows (limited due to recent surgical intervention ); able to extend lower leg actively and ecchymosis (mild ), lower leg (Negative John's Sign ) Details: normal to inspection; no erythema and no tenderness, ankle (+ankle dorsiflexion/plantarflexion ) Details: normal to inspection, no edema and normal ROM; no tenderness, no swelling and no ecchymosis and foot Details: normal capillary refill, normal to inspection, vascular exam Details: dorsalis pedis pulse present and motor-sensory exam Details: light-touch normal; no tenderness Left lower extremity: normal to inspection Psych: Mental Status: mental status grossly normal Objective Data Vital Signs Vital Signs: Vital Signs - 24 hr 02/11/22 11:15 02/11/22 13:25 02/11/22 17:25 Temperature 36.7 C 36.2 C L 36.3 C L Pulse Rate 51 L 68 45 L Respiratory Rate 16 16 16 Blood Pressure 113/53 L 131/58 L 134/65 Pulse Oximetry 97 100 100 Oxygen Delivery 02/11/22 21:15 02/11/22 20:00 02/12/22 00:04 Temperature 36.8 C 36.6 C Pulse Rate 47 L 50 L Respiratory Rate 16 20 Blood Pressure 143/63 H 147/66 H Pulse Oximetry 100 100 Oxygen Delivery Room Air 02/12/22 04:14 02/11/22 23:25 02/12/22 09:06 Temperature 36.6 C Pulse Rate 48 L Respiratory Rate 20 Blood Pressure 142/56 H Pulse Oximetry 100 99 Oxygen Delivery Room Air Room Air Intake/Output Intake/Output: Intake & Output 02/09/22 02/10/22 02/11/22 02/12/22 23:59 23:59 23:59 23:59 Intake Total 900 890 250 Output Total 200 500 200 Balance 700 390 50 Meds/Results Medications:
[2022-02-12 09:42] VITALS: BP 116/58; PULSE 63; RESP 16; TEMP 36.8; O2SAT 99
[2022-02-12] MEDS: ACETAMINOPHEN 500 MG TABLET 1000 MG PO (11:48)
--- NOTE | 2022-02-12 13:15 | PM.DS ---
DS: Admitting Diagnosis Discharge Date 02/12/22 Admitting Diagnosis Right Knee DJD DS: Discharge Diagnosis Discharge Diagnosis (1) S/P total knee arthroplasty: Code(s): Z96.659 - Presence of unspecified artificial knee joint Status: Acute Assessment and Plan: POD #2 : Right TKA Continue PT/OT. WBAT. Walker. HIGH FALL RISK. Continue pain control. Ice Knee. Protect skin. DVT prophylaxis with Aspirin. SCDs. Incentive Spirometry Use reviewed. Monitor Dressing. Change prior to discharge. Bowel Regimen. Dispo: Home with Home Health pending progress with PT/OT DS: Summary Hospital Course Reason for hospitalization: Right TKA Hospital Course: 71 year old female admitted s/p right TKA for postoperative medical management, paint control and mobilization with PT/OT. Patient had slow progress with PT/OT on POD #1. Improvement on POD #2. Pain well controlled. Pain and vitals stable throughout. She has been cleared to be discharged home with home health at this time. Follow up planned for 3 weeks in the outpatient orthopedic clinic with Dr. Mckeon. Status at Discharge Functional status at discharge: uses cane/walker Overall status at discharge: patient is progressing back to baseline Time Spent with Patient Time attestation: Total time spent providing and/or coordinating discharge services: Exam Const: General: comfortable and no acute distress Resp: Effort & Inspection: normal respiratory effort Cardio: Rate: regular rate Rhythm: regular rhythm Skin: General skin exam: wounds noted Wounds: wounds noted Other: Incision c/d/i. No surrounding redness/warmth. No hematoma. Mild ecchymosis. No wound dehiscence Neuro: Cognition (Neuro): normal cognition Other: NV intact aside from block. Moves toes. Sensation intact to light touch. +ankle dorsiflexion/plantarflexion. Extrem: Right lower extremity: normal to inspection, knee Details: tenderness (diffuse, mild ) Location: of the patella, swelling (diffuse, consistent with surgical intervention ), abnormal ROM Details: pain with active ROM during, pain with passive ROM during and with range as follows (limited due to recent surgical intervention ); able to extend lower leg actively and ecchymosis (mild ), lower leg (Negative John's Sign ) Details: normal to inspection; no erythema and no tenderness, ankle (+ankle dorsiflexion/plantarflexion ) Details: normal to inspection, no edema and normal ROM; no tenderness, no swelling and no ecchymosis and foot Details: normal capillary refill, normal to inspection, vascular exam Details: dorsalis pedis pulse present and motor-sensory exam Details: light-touch normal; no tenderness Left lower extremity: normal to inspection Other: VSS AFEBRILE DRESSING DRY NV INTACT NEG HOMANS SIGN CALF SOFT NON TENDER. WEAK FEMORAL NERVE MOTOR DISTRIBUTION Psych: Mental Status: mental status grossly normal Discharge Plan Discharge Attending physician on discharge: Momo Mckeon Discharging Clinician: Yany Cade Patient Disposition: Home Health Service Activity: may shower, no driving and follow weight bearing status Diet: as tolerated Wound Care Instructions: follow printed instructions Discharge Instructions: Per Care Coordination. [facility] has been arranged. They will contact you for first visit. They can be reached at [phone] Nursing, please fax discharge instructions to [phone] Post Op Total Knee Replacement Instructions Dr. Momo Mckeon [phone] Your dressing will be changed prior to your discharge. You will be sent home with one additional dressing to be changed on post op day 7 by the home health RN. Your lalito will be removed on the 14th day after surgery and steri-strips will be placed. Please practice good hand hygiene and do not touch your incision in order to prevent infection. You may shower with your dressing but do not submerge in a bath tub. Do not drive
--- NOTE | 2022-02-12 14:30 | PC.NURSE ---
On 02/12/22, the student, [Giulia Pradhan], provided care and completed [facility] documentation on this patient. I have reviewed the student's documentation and agree with the findings.
== END 2022-02-12 15:15 | disposition home health service (06) ==
LOC: ANHSURGERY 16:58 → ANH2MED 16:58
PROVIDERS: Admitting Provider Orthopaedic Surgery; PCP Family Medicine; Visit Provider Orthopaedic Surgery
PROC: (CPT 27447; principal; 2022-02-10 12:00)
DX: M17.11 Unilateral primary osteoarthritis, right knee (principal); M25.561 Pain in right knee; Z96.659 Presence of unspecified artificial knee joint; G89.18 Other acute postprocedural pain; F10.90 Alcohol use, unspecified, uncomplicated; Z87.891 Personal history of nicotine dependence; Z79.1 Long term (current) use of non-steroidal anti-inflammatories (NSAID)
CPT/HCPCS: 27447; 64447; 36415; 73560; 80048; 85025; 86850; 86900; 86901; 97110; 97116; 97161; 97165; 97530; A9270; C1713; C1776; G0378; J0171; J0690; J1100; J1885; J2270; J2405; J2704; J2795; J3010; J7120

== ENCOUNTER 2022-12-03 13:15 | Outpatient (RCR) | payer MEDICARE, OTHER, SELFPAY ==
--- NOTE | 2022-11-24 13:29 | OPREHPOC ---
Outpatient Therapy Plan of Care This is a Multidisciplinary Plan of Care that may contain components documented by all disciplines (PT, OT, and ST.) PT Problem 1 PT Problem #1 Knowledge Deficit PT Goal 1 Goal Pt will be independent in HEP Pt will verbalize understanding of diagnosis and prognosis Target Visit 8 PT Problem 2 PT Problem #2 Pain PT Goal 1 Goal Pt will report greatest pain level at 3/10 or less Target Visit 8 PT Goal 2 Goal Pt will report resolution of pain Target Visit 16 PT Problem 3 PT Problem #3 Impaired Range of Motion PT Goal 1 Goal Pt will demo equal AROM bilat ankles Target Visit 8 PT Goal 2 Goal Pt will demo AROM dorsiflexion 0-10 degrees L ankle Target Visit 16 PT Problem 4 PT Problem #4 Impaired Strength PT Goal 1 Goal Pt will demo L plantarflexion strength of 3/5 Target Visit 8 PT Goal 2 Goal Pt will demo L plantarflexion strength of 5/5 Target Visit 16
--- NOTE | 2022-11-24 13:29 | PTOPEVAL1 ---
Assessment and note entered by Celia White, PT Evaluation Information Assessment Status Evaluation Subjective Information Has been favoring LLE secondary to pain. Mike did R knee last year, pt reports she is doing to much Does a lot of yard and garden work. 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 Left foot has been bothering her a good 3 weeks . Scheduled to get into [facility] Jan 18 in case therapy doesn't work. Has been out working on a pond standing on a slant, but doesn't recall rolling it or injuring it. Was usually wearing sandals, but has shifted back to [place]ie[place] but hasn't seems to help. Has tried ice, elevation, naproxen, wrapping. Alleviating factors: sitting with feet propped up, massage therapy Aggravtaing: walking Reported Pain Level Pain Score 2: Self Report Assessment PT Clinical Summary Pt presents with complaints of left foot pain wihtout traumatic incident. Demo's abnormal foot/ ankle alignment, deficits in ankle ROM, tarsal/ metatarsal mobility, decreased strenght, decreased gastroc flexibility during evaluation. Pt will benefit from physical therapy to address deficits, and return pt to prior level of function without pain. Plan of Care Interventions Electrical Stimulation,Hot Pack/Cold Pack,Manual Therapy,Neuro Re-education,Patient/Caregiver Educati,Therapeutic Activities,Therapeutic Exercise,Ultrasound PT Services Indicated Yes Treatment Frequency and 1-2x weekly x 8 weeks Duration These treatments will address the objective and functional deficits as defined above. The patient will be advanced safely and appropriately in order for the patient to progress towards his/her prior level of function. Additional exercises will be introduced and as well as a comprehensive home exercise program upon discharge, if needed, ?to ensure carryover of functional gains achieved in the clinic. This treatment plan has been reviewed and agreement upon by the patient.
--- NOTE | 2022-12-16 13:10 | PCPTNOTE ---
Admitting Provider: Attending Provider: Chris Schumacher MD Patient:Delfina Cowart Date of :1950 Patient called stating she recieved her imaging results and would pursue a different route for her progress. Per patient request, we cancelled her remaining appointments therefore she will be discharged at this time. Patient?s initial visit was on 11/24/2022 12:30 and she had a total of 4 visits. The goals have been partially met. Thank you for referring this patient to [facility]. Please review, sign, date and return this discharge summary SAMANTHA. I have been updated about the patient's current status and I agree with discharge from the above service at this time. Referring Physician Date
== END 2022-12-16 13:41 | disposition home or self-care (01) ==
LOC: ANHHIPT 13:15
PROVIDERS: PCP Family Medicine; Visit Provider Family Medicine
DX: M25.572 Pain in left ankle and joints of left foot (principal); G57.52 Tarsal tunnel syndrome, left lower limb; M79.672 Pain in left foot
CPT/HCPCS: 97014; 97110; 97140; 97162; G0283

== ENCOUNTER → 2022-12-11 15:18 | Outpatient (CLI) | payer MEDICARE, OTHER, SELFPAY ==
--- NOTE | ~2022-12-11 | MR_ITS ---
EXAMINATION: MR foot LT wo con DATE: 12/11/2022 15:56 INDICATION: Left foot pain TECHNIQUE: Magnetic resonance imaging (MRI) of the left mid and hind foot was performed without intra venous contrast. Sequences included sagittal T1-weighted FSE, sagittal fluid sensitive FSE STIR, zachery nal PD-weighted FS FSE, coronal T1-weighted FSE, axial PD-weighted FS FSE, and axial PD-weighted FSE. COMPARISON: None. FINDINGS: Medial ankle ligaments: Deep and superficial deltoid ligaments as well as the spring ligament are normal. Lateral ankle ligaments: The anterior and posterior inferior tibiofibular ligaments are normal. The anterior talofibular, calc aneofibular and posterior talofibular ligaments are normal. Tendons: Achilles tendon is normal. The peroneus longus and brevis tendons are normal. The tibialis anterior a nd extensor hallucis longus and extensor digitorum longus tendons are normal. The tibialis posterior, flexor digitorum longus and flexor hallucis longus tendons are normal. Plantar fascia: Chronic enthesopathy with small enthesophyte at the calcaneal origin of the plantar aponeurosis with mild increased signal of the proximal most central component of the aponeurosis but without surroundi ng soft tissue or marrow edema to suggest acute plantar fasciitis. Bones/other: There is prominent marrow edema throughout the cuboid with couple irregular low signal intensity pote ntial fracture lines at the medial side of the cuboid bone without evident displacement or discrete c ortical disruption. There is increased signal of less than fluid intensity in the region of the bifur rashawn ligament between the cuboid, navicular and the anterior process of the calcaneus suggesting poss ible ligament sprain. There is thickening and mild increased signal of the lateral side of the talona vicular ligament with likely associated reactive edema along the dorsal aspect of the navicula. This constellation of findings suggests a recent metatarsal (Chopart) joint injury. Mild osteoarthritis at the articulations between the navicula and the lateral and mid cuneiforms with mild subarticular cys tic change at the proximal/lateral corner of the mid cuneiform. Additional mild osteoarthritis at the second and third tarsal metatarsal joints. Lisfranc ligament complex is normal. Fluid: There is a small ankle joint effusion. Soft tissue edema most prominent over the dorsolateral aspect of the midfoot and to lesser degree about the ankle. IMPRESSION: 1. Constellation of findings including likely recent sprains of the talonavicular and bifurcate ligam ents and at least bone contusion, potentially incomplete fracture of the cuboid. 2. 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 Reviewed, dictated and finalized at location A. IMPRESSION: 1. Constellation of findings including likely recent sprains of the talonavicul ar and bifurcate ligaments and at least bone contusion, potentially incomplete fracture of the cuboid. 2. 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
== END ==
PROVIDERS: PCP Family Medicine; Visit Provider Family Medicine
DX: M79.672 Pain in left foot (principal); S93.692A Other sprain of left foot, initial encounter; M19.072 Primary osteoarthritis, left ankle and foot
CPT/HCPCS: 73718

== ENCOUNTER 2023-09-01 08:39 | Outpatient (CLI) | payer MEDICARE, OTHER, SELFPAY ==
--- NOTE | ~2023-09-01 | US_ITS ---
EXAMINATION: US soft tissue head and neck DATE: 09/01/2023 11:58 INDICATION: Localized swelling, mass and lump, neck. TECHNIQUE: Multiple grayscale and Doppler ultrasound images of the head and neck were obtained. COMPARISON: None FINDINGS: In the left subclavicular region, there is a 5.2 x 2.4 x 3.9 cm mass that is isoechoic to n ormal subcutaneous fat with similar echotexture. IMPRESSION: 1. 5.2 cm mass in left supraclavicular region, likely a lipoma. Reviewed, dictated and finalized at location A.
== END 2023-09-01 08:40 ==
PROVIDERS: PCP Family Medicine; Visit Provider Nurse Practitioner Family
DX: R22.1 Localized swelling, mass and lump, neck (principal)
CPT/HCPCS: 76536

== ENCOUNTER 2024-03-10 09:12 | Outpatient (CLI) | payer MEDICARE, OTHER, SELFPAY ==
--- NOTE | ~2024-03-10 | CT_ITS ---
EXAMINATION: CT hip RT wo con DATE: 03/10/2024 09:39 INDICATION: Unspecified injury of right hip. TECHNIQUE: Computed tomography (CT) of the right hip was performed without intravenous contrast. Auto mated exposure control and iterative reconstruction technique were employed. The dose-length product was 424.55 mGy-cm. COMPARISON: Pelvis and right hip radiographs 02/24/2024 FINDINGS: There is a right inguinal hernia containing fat. Bone alignment is normal. No fracture. The re is moderate right hip osteoarthritis. There is a benign bone island in right pelvis. Osteitis pubi s is noted. IMPRESSION: 1. Moderate right hip osteoarthritis. 2. Right inguinal hernia containing fat. Reviewed, dictated and finalized at location A. HOUSE ASSOCIATE
== END 2024-03-10 09:13 | disposition home or self-care (01) ==
LOC: GOSHIMG 09:12
PROVIDERS: PCP Orthopaedic Surgery; Visit Provider Orthopaedic Surgery
DX: M16.11 Unilateral primary osteoarthritis, right hip (principal); K40.90 Unilateral inguinal hernia, without obstruction or gangrene, not specified as recurrent; S79.911A Unspecified injury of right hip, initial encounter; X58.XXXA Exposure to other specified factors, initial encounter
CPT/HCPCS: 73700

== ENCOUNTER 2024-05-25 09:42 | Outpatient (CLI) | payer MEDICARE, OTHER, SELFPAY ==
--- NOTE | ~2024-05-25 | US_ITS ---
EXAMINATION: US soft tissue head and neck DATE: 05/25/2024 09:55 INDICATION: Localized swelling, mass and lump, neck. TECHNIQUE: Multiple grayscale and Doppler ultrasound images of the head and neck were obtained. COMPARISON: Ultrasound 09/01/2023 FINDINGS: In the left subclavicular region, there is a 4.3 x 2.1 x 5.2 cm mass that is isoechoic to s ubcutaneous fat with similar echotexture, consistent with a lipoma. IMPRESSION: 1. 5.2 cm subcutaneous lipoma in left supraclavicular region, stable from 09/01/2023. Reviewed, dictated and finalized at location A. ATRIC TECHNICIAN IMPRESSION: 1. 5.2 cm subcutaneous lipoma in left supraclavicular region, stable from 2023.
== END 2024-05-25 09:43 | disposition home or self-care (01) ==
LOC: MICIMG 09:43
PROVIDERS: PCP Nurse Practitioner Family; Visit Provider Nurse Practitioner Family
DX: D17.1 Benign lipomatous neoplasm of skin and subcutaneous tissue of trunk (principal); R22.1 Localized swelling, mass and lump, neck
CPT/HCPCS: 76536

== ENCOUNTER 2024-12-11 09:23 | Outpatient (CLI) | payer MEDICARE, OTHER, SELFPAY ==
--- NOTE | 2024-12-11 09:40 | NEURO_ITS ---
Impression: # Non-diabetic complains of numbness of right hand. ? # Moderate right Carpal Tunnel Syndrome. ? 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 Nerve Conduction Studies ?Stim Site NR Peak (ms) P-T Amp (?V) Site1 Site2 Delta-P (ms) Dist (cm) Carlitos (m/s) Right Median Anti Sensory (2-3nd Digit) Wrist ? 5.9 9.7 Wrist 2-3nd Digit 5.9 14.0 24 Wrist ? 6.2 9.3 Wrist 2-3nd Digit 5.9 14.0 24 Right Radial Anti Sensory (Base 1st Digit) Wrist ? 2.5 11.7 Wrist Base 1st Digit 2.5 0.0 Right Ulnar Anti Sensory (5th Digit) Wrist ? 2.2 13.0 Wrist 5th Digit 2.2 14.0 64 ?Stim Site NR Onset (ms) O-P Amp (mV) Site1 Site2 Delta-0 (ms) Dist (cm) Carlitos (m/s) Right Median Motor (Abd Poll Brev) Wrist ? 5.5 2.5 Elbow Wrist 5.0 28.0 56 Elbow ? 10.5 2.2 Right Ulnar Motor (Abd Dig Minimi) Wrist ? 3.7 5.5 A Elbow Wrist 5.7 29.0 51 A Elbow ? 9.4 4.6 B Elbow Wrist 3.5 20.0 57 B Elbow ? 7.2 2.7 F Wave Studies ?NR F-Lat (ms) L-R F-Lat (ms) Right Median (Mrkrs) (Abd Poll Brev) ? 30.12 Right Ulnar (Mrkrs) (Abd Dig Min) ? 31.76 Electromyography ?Side Muscle Nerve Root Ins Act Fibs Amp Dur Recrt Comment Right 1stDorInt Ulnar C8-T1 Nml Nml Nml Nml Nml Right Ext Indicis Radial (Post Int) C7-8 Nml Nml Nml Nml Nml Right Ext Digitorum Radial (Post Int) C7-8 Nml Nml Nml Nml Nml Right BrachioRad Radial C5-6 Nml Nml Nml Nml Nml Right PronatorTeres Median C6-7 Nml Nml Nml Nml Nml Right Abd Poll Brev Median C8-T1 Nml Nml Nml Nml Nml Right ABD Dig Min Ulnar C8-T1 Nml Nml Nml Nml Nml Right FlexPolLong Median (Ant Int) C7-8 Nml Nml Nml Nml Nml Right Abd Poll Long Radial (Post Int) C7-8 Nml Nml Nml Nml Nml
== END 2024-12-11 09:24 | disposition home or self-care (01) ==
LOC: ANHNEURO 09:24
PROVIDERS: PCP Nurse Practitioner Family; Visit Provider Orthopaedic Surgery
DX: G56.01 Carpal tunnel syndrome, right upper limb (principal); G56.21 Lesion of ulnar nerve, right upper limb
CPT/HCPCS: 95886; 95909

== ENCOUNTER 2025-02-02 08:29 | Outpatient (CLI) | payer MEDICARE, OTHER, SELFPAY ==
--- NOTE | 2025-02-02 08:30 | ECG_ITS ---
Test Date: 2025-02-02 08:48:25 Measurements Intervals [place] Rate: 54 P: 64 VA: 186 QRS: 20 QRSD: 89 T: 31 QT: 417 QTc: 396 Interpretive Statements SINUS BRADYCARDIA POSSIBLE RIGHT VENTRICULAR CONDUCTION DELAY [ BASELINE ARTIFACT- I, II, III, AVR, AVL, AVF BORDERLINE ECG No previous ECG available for comparison Electronically Signed On 02-02-2025 09:35:19 CDT by Сергей Bruce D.O.
--- OUTSIDE RECORDS SUMMARY | 2025-02-02 08:47 | XMS_ITS | Encounter Summary ---
Author Organization [facility] Address [facility] [place] [address] Care Team Providers Care Local Operator Name Role Phone Yany Barreto Primary Care Provider [phone] Encounter Details Date Type Department Care Team (Late st Contact Info) Description 02/29/2024 [facility] Message Enc [facility] THREE [facility], [place] [id number] Kian Beltran MD Three [facility]. [address] [id number] Blood pressure Social History Tobacco Use Types Packs/Day Years Used Date Smoking Tobacco: Former Cigarettes 0.5 10 1 969 - 1978 Smokeless Tobacco: Never Alcohol Use Standard Drinks/Week Comments Yes 0 (1 standard drink = 0.6 oz pur e alcohol) 1 to 2 beers a week PHQ-2 Answer Date Recorded PHQ-2 Score - If the patient scores above 3, please move on to questions 3-9 0 11/14/2021 Education Answer Date Recorded What is the highest level of school you have completed or the highest degree you have received? 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 If SBP remains > 160 with that, then will increase to 50 mg. Will need to bet a BMP in 12 days. May need low dose amlodipine as well. Will see. MOLDER HAND documented in this encounter Plan of Treatment Upcoming Encounters Date Type Department Care Team (Late st Contact Info) Description 02/14/2025 9:30 AM TILE MOLDER HAND Appointment [facility] Non Invasive [place] [address] Kian Beltran MD Three [facility]. [address] [id number] 02/20/2025 9:45 AM TILE MOLDER HAND Office Visit [facility] THREE [facility], [address] [phone] Kian Beltran MD Three [facility]. [address] [phone] documented as of this encounter Results * (ABNORMAL) BASIC METABOLIC PANEL (04/13/2024 10:55 AM TILE MOLDER HAND) [facility] GLUCOSE 89 70 - 99 MG/DL 04/13/2024 11:38 AM [facility] BUN 19(H) 7 - 18 MG/DL 04/13/2024 11:38 AM [facility] CREATININE S/P/B 1.03(H) 0.55 - 1.02 MG/DL 04/13/2024 11:38 AM [facility] SODIUM S/P/B 140 136 - 145 MMOL/L 04/13/2024 11:38 AM [facility] POTASSIUM S/P/B 4.1 3.5 - 5.1 MMOL/L 04/13/2024 11:38 AM [facility] CHLORIDE S/P/B 106 100 - 108 MMOL/L 04/13/2024 11:38 AM [facility] CO2 30.9 21 - 32 MMOL/L 04/13/2024 11:38 AM [facility] CALCIUM S/P/B 10.0 8.5 - 10.1 MG/DL 04/13/2024 11:38 AM [facility] ANION GAP 3.1(L) 5 - 15 MMOL/L 04/13/2024 11:38 AM [facility] BUN CREATININE RATIO 18.4 6 - 26 04/13/2024 11:38 AM [facility] GFR ESTIMATE 57(L) >90 ML/MIN/1.7 3 M2 04/13/2024 11:38 AM [facility] Comment: NOTE: eGFR is not calculated for patients <18 years of age. This is an estimated GFR calculation using the new CKD EPI creatinine equation without race and so does not require a correction factor for race. This estimated GFR should not be used for calculating drug doses. 04/13/2024 10:5 5 AM TILE MOLDER HAND Kian Beltran MD LABORATORY Final Resul t [facility] [address] [place] [address], documented in this encounter Visit Diagnoses Diagnosis Primary hypertension- Primary Unspecified essential hypertension documented in this encounter Care Teams Local Operator Relationship Specialty Start Date End Date Yany Barreto FNP [address] [place] [id number] PCP - General Nurse Practitioner Family 02/04/24 documented as of this encounter
--- OUTSIDE RECORDS SUMMARY | 2025-02-02 08:47 | XMS_ITS | Encounter Summary ---
Author Organization [facility] Address [facility] [place] [address] Care Team Providers Care Instrumentation Supervisor Name Role Phone Monica Ayala DO Primary Care Provider [phone] Chris Schumacher MD Primary Care Provider [phone] Yany Barreto Primary Care Provider [phone] Encounter Details Date Type Department Care Team (Late st Contact Info) Description 01/27/2022 [place] [facility] [place] Message Enc [facility] THREE [facility], [address] [address] [email or web address] Provider labs Social History Tobacco Use Types Packs/Day Years Used Date Smoking Tobacco: Former Cigarettes 0.5 10 1 970 - 1980 Smokeless Tobacco: Never Alcohol Use Standard Drinks/Week Comments Yes 0 (1 standard drink = 0.6 oz pur e alcohol) socially PHQ-2 Answer Date Recorded PHQ-2 Score - If the patient scores above 3, please move on to questions 3-9 0 11/14/2021 Education Answer Date Recorded What is the highest level of school you have completed or the highest degree you have received? 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 No / Unsure 12/29/2021 9:51 AM CDT documented as of this encounter Plan of Treatment Upcoming Encounters Date Type Department Care Team (Late st Contact Info) Description 02/14/2025 9:30 AM MICA MACHINE OPERATOR Appointment [facility] [address] [address] Kian Beltran MD [address] [place] [address] 02/20/2025 9:45 AM MICA MACHINE OPERATOR Office Visit [facility] [address], [address] [place], [place] [address] Kian Beltran MD [address] [place], [place] [address] documented as of this encounter Visit Diagnoses Not on filedocumented in this encounter Care Teams Instrumentation Supervisor Relationship Specialty Start Date End Date Monica Ayala DO PCP - General FAMILY PRACTICE 11/28/21 09/20/23 Chris Schumacher MD [address] [place] [id number] PCP - General 09/21/23 02/03/24 Yany Barreto FNP [address] [place] [phone] PCP - General Nurse Practitioner Family 02/04/24 documented as of this encounter
--- OUTSIDE RECORDS SUMMARY | 2025-02-02 08:47 | XMS_ITS | Encounter Summary ---
Author Organization [facility] Address [address] [place] [address] Care Team Providers Care Floor Covering Printer Name Role Phone Yany Barreto Primary Care Provider [phone] Reason for Visit * Reason Onset Date Comments Information 02/01/2025 [facility] Pre-OP Testing Encounter Details Date Type Department Care Team (Late st Contact Info) Description 02/01/2025 Telephone [facility] THREE [facility], [address] [id number] Kian Beltran MD Three [facility]. [address] [phone] Information ([facility] Pre-OP Testing) Social History Tobacco Use Types Packs/Day Years Used Date Smoking Tobacco: Former Cigarettes 0.5 10 1 969 - 1978 Smokeless Tobacco: Never Alcohol Use Standard Drinks/Week Comments Yes 0 (1 standard drink = 0.6 oz pur e alcohol) 1 to 2 beers a week PHQ-2 Answer Date Recorded Patient Health Questionnaire-2 Score 0 04/27/2024 Education Answer Date Recorded What is the highest level of school you have completed or the highest degree you have received? 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 [place], [place] [phone] 02/20/2025 9:45 AM CHARGE OUT CLERK Office Visit [facility] [address] [facility] [address], [address] [place], [place] [address] Kian Beltran MD [address] [facility] [address] [place], [place] [phone] documented as of this encounter Visit Diagnoses Not on filedocumented in this encounter Care Teams Floor Covering Printer Relationship Specialty Start Date End Date Yany Barreto FNP [address] [place] [phone] PCP - General Nurse Practitioner Family 02/04/24 documented as of this encounter
--- OUTSIDE RECORDS SUMMARY | 2025-02-02 08:47 | XMS_ITS | Clinical Summary ---
Author Organization [facility] Address [facility] [place] [address] Care Team Providers Care Lurer Name Role Phone Yany Barreto QUALITY CONTROL HEAD Primary Care Provider [phone] Allergies Active Allergy Reactions Criticality Noted Date Comments Sulfa Antibiotics Rash,Unknown Low 08/22/2013 Medications losartan (COZAAR) 50 MG tablet TAKE 1 TABLET BY MOUTH EVERY DAY 90 tablet 1 10/16/2024 Active Active Problems Problem Noted Date Diagnosed Date Right inguinal hernia 03/27/2024 Lipoma of neck 10/12/2023 Neck mass 10/12/2023 Aftercare following joint replacement surgery Presence of right artificial knee joint 02/11/20 MVP (mitral valve prolapse) 02/03/2022 Osteoarthritis of knee 02/02/2022 Nonrheumatic mitral (valve) prolapse 04/05/2021 Generalized osteoarthritis of multiple sites Acquired absence of both cervix and uterus 04/05 Personal history of nicotine dependence 04/05/19 Systolic ejection murmur Resolved Problems Problem Noted Date Diagnosed Date Resolved Date Acquired trigger finger 02/02/202204/06 Secondary hypertension 11/14/202104/27 BMI 24.0-24.9, adult 11/23/2018 022 Fatigue, unspecified type 11/23/2018 Screening for colorectal cancer 11/23/2018 12/15/2019 GERD (gastroesophageal reflux disease) 07/17/2016 02/02/2022 Bilateral carpal tunnel syndrome 10/11/2015 11/23/2018 Knee pain 06/18/2014 04/27/2024 Encounters Date Type Department Care Team Description 02/01/2025 Telephone [facility] THREE [facility], [address] [address] Kian Beltran MD Information ([facility] Pre-OP Testing) from Last 3 Months Immunizations Immunization Administration Dates Next Due Fluzone Adult - >Age 3 (Pref illed Syringe) 11/27/2019(Deferred: Patient Refused) Tdap (Generic) 09/10/2013 Family History Medical History Relation Comments Diabetes Brother 2 Kidney Disease Brother 2 Heart Disease Brother 3 Hypertension Brother 4 Ooo Cancer Father Lung Cancer Father Heart Attack Maternal Grandmother Diabetes Mother Heart Attack Mother Heart Disease Mother Hypertension Mother Heart Attack Paternal Grandfather Cancer Sister 2 Relation Status Comments Brother 1 Alive Brother 2 Brother 3 Brother 4 Father Maternal Grandfather Maternal Grandmother Mother Alive Paternal Grandfather Paternal Grandmother Sister 1 Alive Sister 2 Social History Tobacco Use Types Packs/Day Years Used Date Smoking Tobacco: Former Cigarettes 0.5 10 1 969 - 1978 Smokeless Tobacco: Never Tobacco Cessation:Counseling Given: Not Answered Alcohol Use Standard Drinks/Week Comments Yes 0 [...] Sex Assigned at Female 05/12/2024 9:37 AM LURER Legal Sex Female 9:16 PM CDT Gender Identity Not on file Sexual Orientation Not on file 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 Filed Vital Signs Vital Sign Reading Time Taken Comments Blood Pressure 130/88 05/11/2024 3:40 PM LURER Pulse 78 05/11/2024 3:40 PM LURER Temperature 36.6 C (97.9 F) 05/11/2024 3:40 PM LURER Respiratory Rate 16 05/11/2024 3:40 PM LURER Oxygen Saturation 94% 05/11/2024 3:40 PM LURER Inhaled Oxygen Concentration - - Weight 72.6 kg (160 lb) 04/20/2024 9:40 AM LURER Height 167.6 cm (5' 6) 04/20/2024 9:40 AM LURER Body Mass Index 25.82 04/20/2024 9:40 AM LURER Plan of Treatment Upcoming Encounters Date Type Department Care Team (Late st Contact Info) Description 02/14/2025 9:30 AM LURER Appointment [facility] Invasive Cardiology [facility] [address] Kian Beltran MD Three [facility]. [facility] [address] [place], [place] [phone] 02/20/2025 9:45 AM LURER Office Visit [facility] THREE [facility], [facility] [address] [place], [place] [phone] Kian Beltran MD Three [facility]. [facility] [address] [place], [place] [phone] Health Maintenance Due Date Last Done Comments Colorectal Cancer Screening Colonoscopy (10 Years) 1949 Hepatitis C 1967 Pneumococcal Vaccine: 50+ Ye ars (1 of 2 - PCV) 1968 Zoster Vaccines (1 of 2) 1999 Annual Medicare Wellness Visit 2014 DTaP, Tdap and Td Vaccines ( 2 - Td or Tdap) 09/11/2023 09/10/2013 RSV Immunization or 60+ Years (1 - 1-dose 75+ series) 2024 COVID-19 Vaccine (2 - 2024-2 6 season) 2024 06/18/2020 Influenza Adult (#1) 2025 Dexa Scan (General) Completed 12/22/2021 PHQ-2 (Physician [place]) Completed 04/27/2024 Hepatitis A Vaccines Aged Out No long er eligible based on patient's age to complete this topic Meningococcal B Vaccine Aged Out No l onger eligible based on patient's age to complete this topic Meningococcal Vaccine Aged Out No fly lurdes eligible based on patient's age to complete this topic RSV Immunizations Under 20 Months Aged Out No longer eligible based on patient's age to complete this topic Medical Devices Implanted Type Area International Account Representative Device Identifier Shelf Expiration Date Model / Serial / Lot Mesh Marlex Groin 4 X 1.8 - [id number] Implanted:Qty: 1 on 04/20/2024 by Lew Purcell MD at [facility] Mesh Right: Abdomen [employer] - DIV C [employer]ARD [employer] 03/02/2028 [id number] / / [id number] Pump Pain On-Q 400ml - [id number] Implanted:Qty: 1 on 04/20/2024 by Lew Purcell MD at [facility] Pump Right: Abdomen PR Slides INC [id number] / / Agent Hemostatic Floseal Matrix 5 Ml - [id number] Implanted:Qty: 1 on 04/20/2024 by Lew Purcell MD at [facility] Sealant Right: Abdomen COTA - BIOSCIENCE 05/05/2025 [id number] / / [id number] Procedures Procedure Name Priority Date/Time Associated Diagnosis Comments BONE DENSITY/DEXA Routine 12/22/2021 10: 56 AM CDT Asymptomatic menopause from Last 3 Months or Most Recently Relevant to Health Maintenance Results * BONE DENSITY/DEXA (12/22/2021 10:56 AM CDT) Anatomical Region Laterality Modality Bone Bone Density 12/22/2021 12:3 0 PM CDT Narrative 12/22/2021 12:31 PM CDT IMAGING STUDIES: BONE DENSITY/DEXA DATE: 12/22/2021 10:30 AM CLINICAL HISTORY: Asymptomatic menopause . 71-year-old female with menopause at age 59. No calcium therapy FINDINGS: LUMBAR SPINE L2-L4: BMD: 0.823 g/sq cm T-SCORE: -2.3 WHO CLASSIFICATION: Very osteopenic FRACTURE RISK: Moderate LEFT FEMORAL NECK: BMD: 0.656 T-SCORE: -1.7 WHO CLASSIFICATION: Moderate osteopenia FRACTURE RISK: Very low Recommendation. Instigation of calcium replacement therapy with repeat imaging in 2 years Ordered By: KVNG AYALA Interpreted By: Sabrina Quigley, 12/22/2021 12:30 PM Procedure Note Bolivar Quigley MD - 12/22/2021 IMAGING STUDIES: BONE DENSITY/DEXA DATE: 12/22/2021 10:30 AM CLINICAL HISTORY: Asymptomatic menopause . 71-year-old femalewith menopause at age 59. No calcium therapy FINDINGS: LUMBAR SPINE L2-L4: BMD: 0.823 g/sq cm T-SCORE: -2.3 WHO CLASSIFICATION: Very osteopenic FRACTURE RISK: Moderate LEFT FEMORAL NECK: BMD: 0.656 T-SCORE: -1.7 WHO CLASSIFICATION: Moderate osteopenia FRACTURE RISK: Very low Recommendation. Instigation of calcium replacement therapy with repeatimaging in 2 years Ordered By: KVNG AYALA Interpreted By: Sabrina Quigley, 12/22/2021 12:30 PM Kvng Ayala DO DEXA Final Resul t from Last 3 Months or Most Recently Relevant to Health Maintenance Insurance MEDICARE MEDICARE [facility] Care Teams Lurer Relationship Specialty Start Date End Date Yany Barreto FNP [address] [place] [address] PCP - General Nurse Practitioner Family 02/04/24
--- OUTSIDE RECORDS SUMMARY | 2025-02-02 08:47 | XMS_ITS | Encounter Summary ---
Author Organization [facility] Address [facility] [place] [address] Care Team Providers Care Supervisor Counseling And Guidance Name Role Phone Rashmicorbin Yany CHINCHILLA Primary Care Provider [phone] Encounter Details Date Type Department Care Team (Late st Contact Info) Description 04/10/2024 GdeSlon Message Enc [facility] THREE [facility], [place] [address] Kian Beltran MD [facility]. 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 [facility] [address] [place], [place] [address] 02/20/2025 9:45 AM PAGE DESIGNER Office Visit [facility] THREE [facility], [facility] [address] [place], [place] [address] Kian Beltran MD Three [facility]. [facility] [address] [place], [place] [phone] documented as of this encounter Visit Diagnoses Not on filedocumented in this encounter Care Teams Supervisor Counseling And Guidance Relationship Specialty Start Date End Date Yany Barreto FNP [address] [place] [address] PCP - General Nurse Practitioner Family 02/04/24 documented as of this encounter
--- OUTSIDE RECORDS SUMMARY | 2025-02-02 08:47 | XMS_ITS | Encounter Summary ---
Author Organization [facility] Address [facility] [place] [address] Care Team Providers Care Beehive Kiln Supervisor Name Role Phone Demarcus Villaseñor MD Primary Care Provider U Monica Hirsch DO Primary Care Provider [phone]- [phone] Chris Schumacher MD Primary Care Provider [phone] Yany Barreto Primary Care Provider [phone]- [phone] Encounter Details Date Type Department Care Team (Late st Contact Info) Description 11/18/2015 Abstract [facility] AT [address] [address] Anshu Giordano MA Social History Tobacco Use Types Packs/Day Years Used Date Smoking Tobacco: Former Cigarettes Q uit: 1980 Smokeless Tobacco: Never Alcohol Use Standard Drinks/Week Comments Yes 0 (1 standard drink = 0.6 oz pur e alcohol) socially Comments Unknown Sex and Gender Information Value Date Recorded Sex Assigned at Female 05/12/2024 9:37 AM INSIDE SALES ACCOUNT EXECUTIVE Legal Sex Female 9:16 PM CDT Gender Identity Not on file Sexual Orientation Not on file 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 [address] [place] [address] 02/20/2025 9:45 AM INSIDE SALES ACCOUNT EXECUTIVE Office Visit [facility] THREE [facility] [place] [address] [place] [address] Kian Beltran MD Three [facility]. [place] [address] [place], [place] [address] documented as of this encounter Procedures Procedure Name Priority Date/Time Associated Diagnosis Comments BASIC METABOLIC PANEL Routine 07/04/2014 CBC (OUTSIDE LAB) Routine 07/20/2013 COMPREHENSIVE METABOLIC PANEL Routine 07/20/2013 LIPID PANEL Routine 07/20/2013 THYROID STIM HORMONE TSH Routine 07/20/2013 documented in this encounter Results * BASIC METABOLIC PANEL (07/04/2014) SODIUM S/P/B 140 POTASSIUM S/P/B 4.1 CO2 25 CHLORIDE S/P/B 110 GLUCOSE 98 CALCIUM S/P/B 9.4 BUN 21 CREATININE S/P/B 0.8 EGFR NON-AFR. AMER. >60 07/04/2014 us Doc [facility] Abstract LABORATORY Final Result * THYROID STIM HORMONE, TSH (07/20/2013) TSH 2.13 07/20/2013 us Doc [facility] Abstract LABORATORY Edited Resul t - Final * LIPID PANEL (07/20/2013) CHOLESTEROL 208 HDL 57 TRIGLYCERIDES 80 LDL (CALCULATED) 135 07/20/2013 us Doc [facility] Abstract LABORATORY Final Result * COMPREHENSIVE METABOLIC PANEL (07/20/2013) SODIUM S/P/B 140 POTASSIUM S/P/B 4.1 CO2 25 CHLORIDE S/P/B 107 GLUCOSE 85 CALCIUM S/P/B 9.3 BUN 16 CREATININE S/P/B 1.1 EGFR NON-AFR. AMER. 53 ALKALINE PHOSPHATASE S/P/B 70 ALT 22 AST 22 BILIRUBIN TOTAL S/P/B 0.4 ALBUMIN S/P/B 4.1 3.5 - 5.0 TOTAL PROTEIN S/P/B 6.7 07/20/2013 us Doc [facility] Abstract LABORATORY Final Result * CBC (OUTSIDE LAB) (07/20/2013) WBC 5.2 HGB 12.8 HCT 38.7 PLT 186 07/20/2013 us Doc [facility] Abstract LAB-OUTSIDE/ABSTRACTED Final Result documented in this encounter Visit Diagnoses Not on filedocumented in this encounter Care Teams Beehive Kiln Supervisor Relationship Specialty Start Date End Date Demarcus Villaseñor MD PCP - General INTERNAL MEDICINE 10/18/15 11/27/21 Monica Ayala DO PCP - General FAMILY PRACTICE 11/28/21 09/20/23 Chris Schumacher MD [address] [place] [address] PCP - General 09/21/23 02/03/24 Yany Barreto FNP [address] [place] [address] PCP - General Nurse Practitioner Family 02/04/24 documented as of this encounter
--- OUTSIDE RECORDS SUMMARY | 2025-02-02 08:47 | XMS_ITS | Encounter Summary ---
Author Organization [facility] Address Counts include 234 beds at the [facility] [place] [address] Care Team Providers Care Food Service Clerk Name Role Phone Yany Barreto Primary Care Provider [phone] Encounter Details Date Type Department Care Team (Late st Contact Info) Description 03/23/2024 Tigerlily Message Enc [facility] THREE [facility], [place] [address] Kian Beltran MD Three [facility]. 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 Follow up Bps in one week. SSIONS NURSE documented in this encounter Plan of Treatment Upcoming Encounters Date Type Department Care Team (Late st Contact Info) Description 02/14/2025 9:30 AM ADMISSIONS NURSE Appointment [facility] ONE [facility] [place] [address] Kian Beltran MD Three [facility]. [facility] [address] [place], [place] [phone] 02/20/2025 9:45 AM ADMISSIONS NURSE Office Visit [facility] THREE [facility], [facility] [address] [place], [place] [phone] Kian Beltran MD Three [facility]. [facility] [address] [place], [place] [phone] documented as of this encounter Visit Diagnoses Not on filedocumented in this encounter Care Teams Food Service Clerk Relationship Specialty Start Date End Date Yany Barreto FNP [address] [place] [address] PCP - General Nurse Practitioner Family 02/04/24 documented as of this encounter
--- OUTSIDE RECORDS SUMMARY | 2025-02-02 08:47 | XMS_ITS | Encounter Summary ---
Author Organization [facility] Address [facility] [place] [address] Care Team Providers Care Dedicated Local Truck Driver Name Role Phone Monica Ayala DO Primary Care Provider [phone] Chris Schumacher MD Primary Care Provider [phone] Yany Barreto Primary Care Provider [phone] Encounter Details Date Type Department Care Team (Late st Contact Info) Description 01/13/2022 Sajan Message Enc [facility] Family & Internal Medicine [facility] [address] [place] [address] [facility] Provider surgical clearance Social History Tobacco Use Types Packs/Day Years [...] Sex Assigned at Female 05/12/2024 9:37 AM MANAGER OF LEARNING Legal Sex Female 9:16 PM CDT Gender [...] st Contact Info) Description 02/14/2025 9:30 AM MANAGER OF LEARNING Appointment [facility] [address] [facility] [address] [address] Kian Beltran MD [address] [place] [address] [place] [address] 02/20/2025 9:45 AM MANAGER OF LEARNING Office Visit [facility] [address] [facility] [address], [place] [address] [place], [place] [address] Kian Beltran MD Three [facility] [place] [address] [place], [place] [address] documented as of this encounter Visit Diagnoses Not on filedocumented in this encounter Care Teams Dedicated Local Truck Driver Relationship Specialty Start Date End Date Monica Ayala DO PCP - General FAMILY PRACTICE 11/28/21 09/20/23 Chris Schumacher MD [address] [place] [address] PCP - General 09/21/23 02/03/24 Yany Barreto FNP [address] [place] [address] PCP - General Nurse Practitioner Family 02/04/24 documented as of this encounter
--- OUTSIDE RECORDS SUMMARY | 2025-02-02 08:47 | XMS_ITS | Encounter Summary ---
Author Organization [facility] Address [facility] [place] [address] Care Team Providers Care Client Solutions Director Name Role Phone Monica Ayala DO Primary Care Provider [phone] Chris Schumacher MD Primary Care Provider [phone] Yany Barreto Primary Care Provider [phone] Encounter Details Date Type Department Care Team (Late st Contact Info) Description 01/26/2022 Abstract [facility] [address] [address] Anshu Giordano MA Social History Tobacco Use [...] Sex Assigned at Female 05/12/2024 9:37 AM SOLDERER PRODUCTION LINE Legal Sex Female 9:16 PM CDT Gender [...] st Contact Info) Description 02/14/2025 9:30 AM SOLDERER PRODUCTION LINE Appointment [facility] [address] [facility] [place] [address] Kian Beltran MD [address] [place] [address] [place], [place] [phone] 02/20/2025 9:45 AM SOLDERER PRODUCTION LINE Office Visit [facility], [place] [address] [place], [place] [phone] Kian Beltran MD [address] [place] [address] [place], [place] [phone] documented as of this encounter Procedures Procedure Name Priority Date/Time Associated Diagnosis Comments COMPREHENSIVE METABOLIC PANEL Routine 08/25/2023 LIPID PANEL Routine 08/25/2023 CBC, MANUAL DIFF Routine 08/25/2023 THYROID STIM HORMONE TSH Routine 08/25/2023 CBC (OUTSIDE LAB) Routine 11/25/2021 COMPREHENSIVE METABOLIC PANEL Routine 11/25/2021 LIPID PANEL Routine 11/25/2021 LIPID PANEL Routine 11/25/2021 THYROID STIM HORMONE TSH Routine 11/25/2021 documented in this encounter Results * (ABNORMAL) COMPREHENSIVE METABOLIC PANEL (08/25/2023) SODIUM S/P/B 142 GLUCOSE 74 mg/dL AST 16 BUN 22 CREATININE S/P/B 1.11(A) 0.5 - 1.0 CALCIUM S/P/B 9.5 POTASSIUM S/P/B 4.2 CHLORIDE S/P/B 108 ALT 12 GFR ESTIMATE 52 Default History Genericprovider LABORATORY Final Result * LIPID PANEL (08/25/2023) CHOLESTEROL 188 TRIGLYCERIDES 91 HDL 55 LDL (CALCULATED) 114 NON HDL CHOLESTEROL 133 Default History Genericprovider LABORATORY Final Result * CBC, MANUAL DIFF (08/25/2023) WBC 6.4 HGB 11.9 HCT 36.7 PLT 220 Default History Genericprovider LABORATORY Final Result * THYROID STIM HORMONE TSH (08/25/2023) TSH 1.18 Default History Genericprovider LABORATORY Final Result * LIPID PANEL (11/25/2021) CHOLESTEROL 198 TRIGLYCERIDES 55 HDL 64 LDL (CALCULATED) 119 NON HDL CHOLESTEROL 134 Default History Genericprovider LABORATORY Final Result * CBC (OUTSIDE LAB) (11/25/2021) WBC 4.4 HGB 13.3 HCT 40.7 PLT 217 11/25/2021 Default History Genericprovider LAB-OUTSIDE/ABST RACTED Final Result * THYROID STIM HORMONE, TSH (11/25/2021) TSH 1.38 11/25/2021 Default History Genericprovider LABORATORY Edited Result - Final * COMPREHENSIVE METABOLIC PANEL (11/25/2021) SODIUM S/P/B 139 POTASSIUM S/P/B 4.8 CO2 26 CHLORIDE S/P/B 107 GLUCOSE 91 mg/dL CALCIUM S/P/B 9.6 BUN 22 CREATININE S/P/B 0.94 0.5 - 1.0 EGFR NON-AFR. AMER. 65 <=90 ALKALINE PHOSPHATASE S/P/B 63 ALT 17 AST 17 BILIRUBIN TOTAL S/P/B 0.4 ALBUMIN S/P/B 4.2 3.5 - 5.0 TOTAL PROTEIN S/P/B 6.7 GLOBULIN 4.2 11/25/2021 us Default History Genericprovider LABORATORY Edited Result - Final * LIPID PANEL (11/25/2021) CHOLESTEROL 198 HDL 64 TRIGLYCERIDES 55 NON HDL CHOLESTEROL 134 LDL (CALCULATED) 119 11/25/2021 us Default History Genericprovider LABORATORY Final Result documented in this encounter Visit Diagnoses Not on filedocumented in this encounter Care Teams Client Solutions Director Relationship Specialty Start Date End Date Monica Ayala DO PCP - General FAMILY PRACTICE 11/28/21 09/20/23 Chris Schumacher MD [address] [place] [address] PCP - General 09/21/23 02/03/24 Yany Barreto FNP [address] [place] [address] PCP - General Nurse Practitioner Family 02/04/24 documented as of this encounter
--- OUTSIDE RECORDS SUMMARY | 2025-02-02 08:47 | XMS_ITS | Encounter Summary ---
Author Organization [facility] Address [facility] [place] [address] Care Team Providers Care Human Resources Team Member Name Role Phone Demarcus Villaseñor MD Primary Care Provider U Monica Hirsch DO Primary Care Provider [phone]- [phone] Chris Schumacher MD Primary Care Provider [phone] Yany Barreto Primary Care Provider [phone]- [phone] Encounter Details Date Type Department Care Team (Late st Contact Info) Description 09/10/2018 Abstract [facility] CONVERSION [address] [place], [place] [id number] , Generic ConversionMD Social History Tobacco Use Types Packs/Day Years Used Date Smoking Tobacco: Former Cigarettes Q uit: 1980 Smokeless Tobacco: Never Alcohol Use Standard Drinks/Week Comments Yes 0 (1 standard drink = 0.6 oz pur e alcohol) socially Comments Unknown Sex and Gender Information Value Date Recorded Sex Assigned at Female 05/12/2024 9:37 AM RESOURCE CONSERVATIONIST Legal Sex Female 9:16 PM CDT Gender Identity Not on file Sexual Orientation Not on file 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. [place] [address] [place] [address] 02/20/2025 9:45 AM RESOURCE CONSERVATIONIST Office Visit [facility] THREE [facility], [facility] [address] [place] [address] Kian Beltran MD Three [facility]. [place] [address] [place], [place] [address] documented as of this encounter Visit Diagnoses Not on filedocumented in this encounter Care Teams Human Resources Team Member Relationship Specialty Start Date End Date Demarcus Villaseñor MD PCP - General INTERNAL MEDICINE 10/18/15 11/27/21 Monica Ayala DO PCP - General FAMILY PRACTICE 11/28/21 09/20/23 Chris Schumacher MD [address] [place] [address] PCP - General 09/21/23 02/03/24 Yany Barreto, RENÉE [address] [place] [address] PCP - General Nurse Practitioner Family 02/04/24 documented as of this encounter
== END 2025-02-02 08:30 | disposition home or self-care (01) ==
LOC: ANHSURGERY 08:33
PROVIDERS: PCP Nurse Practitioner Family; Visit Provider Orthopaedic Surgery
DX: R94.31 Abnormal electrocardiogram [ECG] [EKG] (principal); I10 Essential (primary) hypertension
CPT/HCPCS: 93005

== ENCOUNTER 2025-02-09 01:14 | Day surgery (SDC) | payer MEDICARE, OTHER, SELFPAY ==
[2025-01-31 12:42] VITALS: BMI 25.8
--- NOTE | 2025-01-31 12:43 | PC.NURSE ---
[facility] has started construction of its new state of the art ER which will open Spring 2026. With this, we anticipate parking may be a challenge for some our surgical patients and families. Parking spaces are limited but are available for all Surgical, obstetrics, and ER patients sharing this lot. If you arrive and find you are having a hard time finding a parking space, please note that we understand the challenges, please drive around the hospital and park near Hospital Entrance 1. When you enter this entrance, you can ask a volunteer to direct or take you back to the surgical waiting area to check in. We appreciate everyone?s understanding of these expected challenges while we build for your future. Report to the Outpatient Waiting Room, entrance under the green pavilion located off [address], at time _0700_ on date _[id number]_. Planned Procedure Time: _0900_.? Time changes happen often and if your time is changed the preop area will call you the afternoon before. - You and your visitor will be asked to self-screen and do not enter if you have any COVID symptoms. Please call surgeon if you need to reschedule. - A mask is optional within the hospital at this time. Patients may have clear liquids (water, carbonated beverages, clear teas, apple juice) until 3 hours prior to surgery with a maximum of 20 ounces. - No food from midnight until time of surgery and no smoking, or chewing tobacco (or any form of nicotine). No chewing gum, candy or mints. Take only the following medications with a SIP of water on the morning of surgery: ___Acetaminophen if needed____ DO NOT STOP ANY OF YOUR OTHER PRESCRIPTION MEDICATIONS PRIOR TO SURGERY EXCEPT THE FOLLOWING Hold all vitamins and supplements for 3 days per anesthesiologist. Medications to discontinue per physician Please ask Dr Mckeon's office about Meloxicam Date to take last dose Please no make-up, nail wolof, hairspray, perfume, deodorant, or body powder the day of surgery.? No jewelry (including any body piercings) or valuables the day of surgery, leave them at home.? Please take a shower or bath the night before, or the morning of, surgery with an antibacterial soap.? Wear comfortable, loose fitting clothing.? - Jewelry must be removed prior to entering the operating room.? Rings and piercings that are not removed may be cut off. - The hospital will not accept responsibility for valuables.? - Please leave all valuables, including medications, at home the day of surgery. If you are going home after surgery, a licensed crew truck driver must drive you home.? - NO public transportation without another adult if you receive anesthesia. - We recommend that an adult stay with you for 24 hours following discharge. - We also recommend that you do not drive, make important decision, drink alcoholic beverages, or take any drugs that were not prescribed by your health care provider for at least 24 hours after your discharge time. Follow any additional instructions given to you from your surgeon. Telephone instructions given to __Delfina___and asked if any additional questions and then verbalized understanding. Patient advised to call surgeon office or pre surgery nurse liaison [phone] if any additional questions.
--- NOTE | 2025-02-09 07:34 | WPDHPUPDATE1 ---
History and Physical Update Update Date/Time: 02/09/25 07:34 History and Physical has been reviewed, including an updated exam of the patient. There are NO changes in the patient's condition. Risks, benefits, and alternatives have been discussed and questions answered. Patient agrees to proceed with procedure.
[2025-02-09] MEDS: CELECOXIB 200 MG CAPSULE PO (09:22)
[2025-02-09] MEDS: ACETAMINOPHEN 500 MG TABLET 1000 MG PO (09:22)
[2025-02-09 09:23] VITALS: BP 173/85; PULSE 61; RESP 16; TEMP 36.2; O2SAT 99
--- NOTE | 2025-02-09 09:51 | WPDANESEPPF ---
Anes - Initial Pre Proc Eval Procedure: Operation Date: 02/09/25 10:30 Proposed Procedures p Right Carpal Tunnel Release - Momo Mckeon MD Date/Time: 02/09/25 09:51 Surgeon: Momo Mckeon MD Pre Op Diagnosis: right carpal tunnel syndrome Patient Data Age: 74 Gender: F Height: 1.68 m Weight: 74.1 kg Last Vital Signs Temp 36.2 C L 02/09/25 09:23 Pulse 61 02/09/25 09:23 Resp 16 02/09/25 09:23 BP 173/85 H 02/09/25 09:23 Pulse Ox 99 02/09/25 09:23 O2 Del Method Room Air 02/09/25 09:23 Allergies Allergy/AdvReac Type Severity Reaction Status Date / Time Sulfa (Sulfonamide Allergy Unknown Rash Verified 02/02/25 08:51 Antibiotics) Home Medications ?Medication ?Instructions ?Recorded ?Confirmed ?Type meloxicam 15 mg tablet 15 mg PO DAILY #90 tabs 07/28/24 01/31/25 Rx acetaminophen 500 mg tablet 1,000 mg PO Q6H PRN pain 01/31/25 01/31/25 History losartan 50 mg tablet 50 mg PO DAILY 01/31/25 01/31/25 History chlorhexidine gluconate 4 % 1 applic topical ONCE #237 mL 02/02/25 Rx topical liquid (Hibiclens) Patient hx anesthesia problems: none Family hx anesthesia problems: none Results Review: All pre-operative results and documents have been reviewed as part of the pre-operative evaluation. PMFSH Past Medical History Medical History Osteoarthritis Left ankle pain Tarsal tunnel syndrome, left lower limb Left foot pain Arthritis Family history of heart murmur History of mitral valve prolapse Toe fracture, right Medial meniscus tear Right knee DJD Surgical History Surgical History S/P total knee arthroplasty History of bladder suspension procedure Hx of hysterectomy H/O arthroscopic knee surgery Family History Family History Father Lung cancer Mother Diabetes mellitus Hypertension Acute myocardial infarction Grandparent Diabetes mellitus Social History Social History Smoking packs per day: 1 Smoking cigarettes per day: 20.0 Years smoked: 10 Smoking pack-years: 10.00 Smoking status: Former smoker Tobacco type: cigarettes Smoking end date: 01/31/79 Additional smoking assessment comments: DENIES ANY FORM OF TOBACCO USE Alcohol intake: current Drinks per week: 1 Alcohol use details: BEER Substance use: never Lack of Transportation: No Lack of Food: Never True Current Housing: I Have Housing Concerned About Future Housing: No Difficulty Paying Gas/Electric Bills: No Difficulty Paying for Meds: No Currently Unemployed: No Education: Associate Degree Difficulty w/ Childcare or Family Care: No Living arrangements: alone 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/Education: 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 Informed Consent: The patient's anesthetic plan and its attendant risks and benefits were discussed with the patient/family/POA. Questions were solicited and answers provided to the satisfaction of the patient/family/POA.
[2025-02-09] MEDS: ceFAZolin 2 GM in SODIUM CHLORIDE 0.9% IV 50 ML 100 ML IVPB (10:59)
[2025-02-09] MEDS: BUPivacaine HCL 0.5% 10 ML AMP INFILTRATE (11:14)
[2025-02-09 11:37] VITALS: BP 133/64; PULSE 54; RESP 20; O2SAT 97
[2025-02-09] MEDS: LACTATED RINGERS 1,000 ML 30 ML IV CONT (11:37)
--- NOTE | 2025-02-09 11:45 | W.PM.PROC2 ---
Procedure Note - Detailed Date of Procedure 02/09/25 Pre-op Diagnosis right carpal tunnel syndrome Post-op Diagnosis Same Procedure Performed RIGHT CTR Surgeon Momo Mckeon MD Anesthesia General Description of Procedure THE RIGHT UPPER EXTREMITY WAS PREPPED AND DRAPED IN THE STERILE FASHION. THE CARPAL TUNNEL WAS MARKED FROM THE FLEXED RING FINGER. THE TOURNIQUET WAS INFLATED. THE INCISION WAS MADE AT THE MID PALM DOWN THROUGH THE SUBCUTANEOUS TISSUES. THE PALMAR FASCIA WAS IDENTIFIED. AN INCISION WAS MADE THROUGH THE PALMAR FASCIA UNTIL THE CARPAL TUNNEL WAS ENTERED. A MOSQUITO HEMOSTAT WAS USED TO PROTECT THE MEDIAN NERVE WHILE THE INCISION TO THE PALMAR FASCIA WAS COMPLETE PROXIMALLY AND DISTALLY TO THE CARDINAL LINE. NEXT, THE TRANSVERSE CARPAL LIGAMENT WAS IDENTIFIED. A FREER ELEVATOR WAS USED TO SEPARATE THE NERVE FROM THE LIGAMENT. A METZENBAUM SCISSORS WAS THEN USED TO INCISE THE TRANSVERSE CARPAL LIGAMENT UNTIL THERE WAS A COMPLETE RELEASE OF THE CARPAL TUNNEL. THE MEDIAN NERVE WAS INTACT. THE TOURNIQUET WAS DEFLATED. THE BLEEDERS WERE CAUTERIZED. THE WOUND WAS WASHED. THE SKIN WAS APPROXIMATED WITH 4-0 NYLON SUTURE. STERILE DRESSING WAS APPLIED. PATIENT WAS EXTUBATED AND SENT TO THE RECOVERY ROOM. Estimated Blood Loss 5 Complications No immediate complications Condition Stable Disposition PACU
[2025-02-09 12:02] VITALS: BP 150/68; PULSE 41
[2025-02-09 12:25] VITALS: BP 156/62; PULSE 42; RESP 16
== END 2025-02-09 12:44 | disposition home or self-care (01) ==
PROVIDERS: PCP Nurse Practitioner Family; Visit Provider Orthopaedic Surgery
PROC: (CPT 64721; principal; 2025-02-09 10:30)
DX: G56.01 Carpal tunnel syndrome, right upper limb (principal); M17.11 Unilateral primary osteoarthritis, right knee; Z98.890 Other specified postprocedural states; Z87.891 Personal history of nicotine dependence; Z86.79 Personal history of other diseases of the circulatory system; Z80.1 Family history of malignant neoplasm of trachea, bronchus and lung; Z82.49 Family history of ischemic heart disease and other diseases of the circulatory system
CPT/HCPCS: 64721; J0690; A9270; J2003; J2250; J2704; J3010; J7120